=== PATIENT | male | born 1990 | race African-American/Black ===

== ENCOUNTER 2025-02-22 19:08 | Inpatient (IN) | payer MEDICARE, MEDICAID, SELFPAY ==
[2025-02-22 20:00] VITALS: BP 136/73; PULSE 60; RESP 16; TEMP 36.9; O2SAT 97
[2025-02-22] MEDS: Acetaminophen 325 MG TABLET 650 MG PO (21:04)
[2025-02-22] MEDS: hydrOXYzine HCL 25 MG TABLET PO (21:05)
[2025-02-22 22:28] VITALS: BMI 20.2
--- NOTE | 2025-02-23 04:49 | PC.ADMIT ---
At 1948, Ren perdomo is a 34 year old that was transferred from [facility] ED and admitted to [facility] on a CV for treatment of schizoaffective disorder ? depressive type. Pt presented to [facility] ED due to him reportedly being off his meds for 4 days and has been coming home late to his [employer] housing. No significant PMHX, except for, hx of poor med compliance and multiple previous IPLOC from years ago. Tox screen positive for THC and cocaine. Last use just prior to admission. Denies alcohol, tobacco, or other substance use.? On arrival, he was cooperative, pleasant, and quiet. Skin check is complete and unremarkable. He appears to be preoccupied, seen responding to internal stimuli, and smiling inappropriately during assessment. Thought process is somewhat disorganized, difficulty responding to questions in linear fashion. Reports he is eating and sleeping well. Pt denies all psych symptoms such as depression, anxiety, A/VH, and substance use, contradicting crisis evaluation. He states he?s only been taking Surrency and Risperdal. Surrency level was 0.05 on 02/22, (0.5-1 normal range). Provided limited participation reporting he was tired and hungry. Denies SI/HI. Reports feeling safe on the unit.? Guardianship paperwork and Botello order in chart for Risperdal, pt reports is allergic to. Pt placed on 15 minute safety checks
[2025-02-23 07:20] VITALS: BP 125/79; PULSE 52; RESP 14; TEMP 36.6; O2SAT 99
[2025-02-23 08:00] VITALS: BP 125/79; PULSE 52; RESP 18; TEMP 36.6; O2SAT 99
[2025-02-23 08:36] LABS: Estimated Average Glucose 103 mg/dL; Hemoglobin A1C 120.4918 umol/L; Hemoglobin A1c % 5.2 % (<6.0); Total Hemoglobin (HGBA1C) 3623.3411 umol/L
[2025-02-23 08:52] LABS: Alanine Aminotransferase 35 U/L (0-40); Albumin Level 4.8 g/dL (3.5-5.0); Alkaline Phosphatase 79 U/L (39-117); Anion Gap 12 (12-20); Aspartate Amino Transferase 28 U/L (5-37); Bilirubin Total 0.7 mg/dL (0.0-1.0); Blood Urea Nitrogen 13 mg/dL (9-16); Calcium 9.7 mg/dL (8.4-10.2); Carbon Dioxide 28 mmol/L (22-29); Chloride 105 mmol/L (96-108); Cholesterol 158 mg/dL (<200); Creatinine Clr Calc Pharmacy 104.2; Estimated Glomerular Filt Rate > 60; Glucose Random 112 mg/dL (60-115); HDL Cholesterol 76 mg/dL (>40); LDL Cholesterol Calculated 61 mg/dL (<100); Magnesium 2.1 mg/dL (1.6-2.6); Potassium 4.4 mmol/L (3.3-5.1); Sodium 141 mmol/L (135-145); Total Protein 7.5 g/dL (6.5-8.0); Triglycerides 109 mg/dL (<150)
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
[2025-02-23 09:11] LABS: Free T4 (Free Thyroxine) 1.21 ng/dL (0.71-1.85); Thyroid Stimulating Hormone 0.67 uIU/mL (0.32-4.0)
[2025-02-23 09:24] LABS: Folate 10.9 ng/mL (> or = 4.0); Vitamin B12 750 pg/mL (200-900)
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
[2025-02-23] MEDS: Lithium Carbonate 300 MG TABLET 150 MG PO (16:16)
[2025-02-23 19:30] VITALS: BP 147/73; PULSE 63; RESP 16; TEMP 36.7; O2SAT 100
[2025-02-23] MEDS: risperiDONE 0.5 MG TABLET PO (20:35)
[2025-02-23] MEDS: Acetaminophen 325 MG TABLET 650 MG PO (20:35)
[2025-02-23] MEDS: hydrOXYzine HCL 25 MG TABLET PO (20:35)
[2025-02-24 07:15] VITALS: BP 110/71; PULSE 81; RESP 16; TEMP 36.4; O2SAT 100
[2025-02-24] MEDS: Lithium Carbonate 300 MG TABLET 150 MG PO (08:38)
[2025-02-24] MEDS: Acetaminophen 325 MG TABLET 650 MG PO ×2 (08:39→21:02)
--- NOTE | 2025-02-24 15:32 | HO.PSYCHPN ---
Subjective Subjective Date of Service: 02/24/25 Reason For Visit: Schizophrenia Subjective Notes: Conditional Voluntary Interim History: Active on unit. social with peers. medication compliant. patient reports having some anxiety ;pt stated, I'm trying to draw to keep myself busy and not be anxious . encouraged to attend groups. denies SI/HI/VH/AH. Continue current tx plan. Medication Compliance: Yes Side effects from medications: No Attending Groups: No Mental Status Exam Mental Status Exam Narrative: Pt is alert and oriented; behavior is cooperative and calm; dressed in casual attire; mood is described as anxious ; eye contact appropriate; Speech is normal rate, volume and not pressured; thought process is organized; Thought content is on discharge; denies SI/HI/VH/AH. Diagnostics Vital Signs (24Hr): Vital Signs - 24 hr 02/23/25 19:30 02/24/25 07:15 Temperature 98.0 F 97.5 F Pulse Rate 63 81 Respiratory Rate 16 16 Blood Pressure 147/73 H 110/71 Pulse Oximetry 100 100 Oxygen Delivery Method Room Air Room Air BMI result Body Mass Index 20.2 Labs 02/23/25 08:03 Labs: Laboratory Results - last 48 hr 02/23/25 08:03 Sodium 141 Potassium 4.4 Chloride 105 Carbon Dioxide 28 Anion Gap 12 BUN 13 Creatinine 0.97 Estim Creat Clear Calc 104.2 Estimated GFR > 60 Random Glucose 112 Estimat Average Glucose 103 Hemoglobin A1c % 5.2 Calcium 9.7 Magnesium 2.1 Total Bilirubin 0.7 AST 28 ALT 35 Alkaline Phosphatase 79 Total Protein 7.5 Albumin 4.8 Triglycerides 109 Cholesterol 158 LDL Cholesterol, Calc 61 HDL Cholesterol 76 Vitamin B12 750 Folate 10.9 TSH 0.67 Free T4 1.21 Medications Medications Current Medications Acetaminophen (Acetaminophen 325 Mg Tablet) 650 mg PO Q6H PRN PRN Reason: Headache/Pain, Scale 1-10 Last Admin: 02/24/25 08:39 Dose: 650 mg Al Hydroxide/Mg Hydroxide (Magnesium Hydrox/Alum Hydrox 30 Ml Oral.Susp) 30 ml PO Q6H PRN PRN Reason: Heartburn/Nausea Hydroxyzine HCl (Hydroxyzine Hcl 25 Mg Tablet) 25 mg PO Q6H PRN PRN Reason: mild anxiety Last Admin: 02/23/25 20:35 Dose: 25 mg [place] Carbonate ([place] Carbonate 300 Mg Tablet) 150 mg PO DAILY MARIBEL Last Admin: 02/24/25 08:38 Dose: 150 mg Magnesium Hydroxide (Milk Of Magnesia 30 Ml Oral.Susp) 30 ml PO DAILY PRN PRN Reason: Constipation Nicotine Polacrilex (Nicotine Polacrilex 2 Mg Gum) 4 mg BUCCAL Q2H PRN PRN Reason: Nicotine Cravings Olanzapine (Olanzapine 5 Mg Tablet) 5 mg PO Q4H PRN PRN Reason: agitation Risperidone (Risperidone 0.5 Mg Tablet) 0.5 mg PO BEDTIME MARIBEL Last Admin: 02/23/25 20:35 Dose: 0.5 mg Trazodone HCl (Trazodone Hcl 50 Mg Tablet) 50 mg PO BEDTIME MRX1 PRN PRN Reason: Insomnia Allergies Allergies Allergy/AdvReac Type Severity Reaction Status Date / Time benztropine [From Cogentin] Allergy Anaphylaxis Verified 02/22/25 23:47 valproic acid Allergy Anaphylaxis Verified 02/22/25 23:47 Assessment & Plan Assessment & Plan (1) Schizophrenia: Status: Acute Code(s): F20.9 - Schizophrenia, unspecified (2) PTSD (post-traumatic stress disorder): Status: Acute Code(s): F43.10 - Post-traumatic stress disorder, unspecified (3) Cocaine use disorder: Status: Acute Code(s): F14.10 - Cocaine abuse, uncomplicated Plan Patient is a 34-year-old male with history of schizophrenia, PTSD, and cocaine use disorder who presented to ER due to medication noncompliance despite being on a Jose G's order. Plan: CV 15 minute safety checks Continue home medications obtain collateral encourage groups referral to outpatient therapy discharge planning 02/24: Active on unit. social with peers. medication compliant. patient reports having some anxiety ;pt stated, I'm trying to draw to keep myself busy and not be anxious . encouraged to attend groups. denies SI/HI/VH/AH. Continue current tx balaji Patient educated on: diagnosis, medication risk/benefits and therapeutic strategies Reason for continued inpatient stay Substantial Risk for: med/psych decompensation Time Spent With Patient Time: Total time managing care of this patient today _20___ minutes.
[2025-02-24 19:27] VITALS: BP 146/83; PULSE 81; RESP 16; TEMP 36.8; O2SAT 100
[2025-02-24] MEDS: risperiDONE 0.5 MG TABLET PO (21:02)
[2025-02-24] MEDS: hydrOXYzine HCL 25 MG TABLET PO (21:04)
[2025-02-25 07:44] VITALS: BP 93/61; PULSE 88; RESP 16; TEMP 36.3; O2SAT 100
[2025-02-25] MEDS: Lithium Carbonate 300 MG TABLET 150 MG PO (08:10)
--- NOTE | 2025-02-25 09:22 | HO.PSYCHPN ---
Subjective Subjective Date of Service: 02/25/25 Reason For Visit: Schizophrenia Subjective Notes: Conditional Voluntary Interim History: Pacing unit hallway. Patient reports he feels he is doing better today; pt stated, I'm doing self therapy and listening to music to keep myself calm . denies SI/HI/VH/AH. per nursing, slept 5 hours. Continue current tx plan. Medication Compliance: Yes Side effects from medications: No Attending Groups: No Mental Status Exam Mental Status Exam Narrative: Pt is alert and oriented; behavior is cooperative and calm; dressed in casual attire; mood is described as anxious ; eye contact appropriate; Speech is normal rate, volume and not pressured; thought process is organized; Thought content is on discharge; denies SI/HI/VH/AH. Diagnostics Vital Signs (24Hr): Vital Signs - 24 hr 02/24/25 19:27 02/25/25 07:44 Temperature 98.2 F 97.4 F Pulse Rate 81 88 Respiratory Rate 16 16 Blood Pressure 146/83 H 93/61 Pulse Oximetry 100 100 Oxygen Delivery Method Room Air Room Air BMI result Body Mass Index 20.2 Labs 02/23/25 08:03 Labs: Laboratory Results - last 48 hr 02/23/25 08:03 Vitamin B12 750 Folate 10.9 Medications Medications Current Medications Acetaminophen (Acetaminophen 325 Mg Tablet) 650 mg PO Q6H PRN PRN Reason: Headache/Pain, Scale 1-10 Last Admin: 02/24/25 21:02 Dose: 650 mg Al Hydroxide/Mg Hydroxide (Magnesium Hydrox/Alum Hydrox 30 Ml Oral.Susp) 30 ml PO Q6H PRN PRN Reason: Heartburn/Nausea Hydroxyzine HCl (Hydroxyzine Hcl 25 Mg Tablet) 25 mg PO Q6H PRN PRN Reason: mild anxiety Last Admin: 02/24/25 21:04 Dose: 25 mg [place] Carbonate ([place] Carbonate 300 Mg Tablet) 150 mg PO DAILY MARIBEL Last Admin: 02/25/25 08:10 Dose: 150 mg Magnesium Hydroxide (Milk Of Magnesia 30 Ml Oral.Susp) 30 ml PO DAILY PRN PRN Reason: Constipation Nicotine Polacrilex (Nicotine Polacrilex 2 Mg Gum) 4 mg BUCCAL Q2H PRN PRN Reason: Nicotine Cravings Olanzapine (Olanzapine 5 Mg Tablet) 5 mg PO Q4H PRN PRN Reason: agitation Risperidone (Risperidone 0.5 Mg Tablet) 0.5 mg PO BEDTIME MARIBEL Last Admin: 02/24/25 21:02 Dose: 0.5 mg Trazodone HCl (Trazodone Hcl 50 Mg Tablet) 50 mg PO BEDTIME MRX1 PRN PRN Reason: Insomnia Allergies Allergies Allergy/AdvReac Type Severity Reaction Status Date / Time benztropine [From Cogentin] Allergy Anaphylaxis Verified 02/22/25 23:47 valproic acid Allergy Anaphylaxis Verified 02/22/25 23:47 Assessment & Plan Assessment & Plan (1) Schizophrenia: Status: Acute Code(s): F20.9 - Schizophrenia, unspecified (2) PTSD (post-traumatic stress disorder): Status: Acute Code(s): F43.10 - Post-traumatic stress disorder, unspecified (3) Cocaine use disorder: Status: Acute Code(s): F14.10 - Cocaine abuse, uncomplicated Plan Patient is a 34-year-old male with history of schizophrenia, PTSD, and cocaine use disorder who presented to ER due to medication noncompliance despite being on a Jose G's order. Plan: CV 15 minute safety checks Continue home medications obtain collateral encourage groups referral to outpatient therapy discharge planning 02/24: Active on unit. social with peers. medication compliant. patient reports having some anxiety ;pt stated, I'm trying to draw to keep myself busy and not be anxious . encouraged to attend groups. denies SI/HI/VH/AH. Continue current tx plan 02/25: Pacing unit hallway. Patient reports he feels he is doing better today; pt stated, I'm doing self therapy and listening to music to keep myself calm . denies SI/HI/VH/AH. per nursing, slept 5 hours. Continue current tx plan. Patient educated on: diagnosis, medication risk/benefits and therapeutic strategies Reason for continued inpatient stay Substantial Risk for: med/psych decompensation Time Spent With Patient Time: Total time managing care of this patient today _20___ minutes.
[2025-02-25] MEDS: Magnesium Hydrox/Alum Hydrox 30 ML ORAL.SUSP PO ×2 (12:41→18:50)
[2025-02-25] MEDS: Acetaminophen 325 MG TABLET 650 MG PO ×2 (13:03→19:09)
[2025-02-25] MEDS: hydrOXYzine HCL 25 MG TABLET PO ×2 (13:05→19:09)
[2025-02-25] MEDS: Milk of Magnesia 30 ML ORAL.SUSP PO (18:09)
[2025-02-25] MEDS: OLANZapine 5 MG TABLET PO (19:20)
[2025-02-25 19:32] VITALS: BP 132/75; PULSE 97; RESP 16; TEMP 36.9; O2SAT 98
[2025-02-25] MEDS: risperiDONE 0.5 MG TABLET PO (21:04)
[2025-02-26 07:59] VITALS: BP 122/73; PULSE 72; RESP 16; TEMP 36.4; O2SAT 100
[2025-02-26] MEDS: Lithium Carbonate 300 MG TABLET 150 MG PO (08:10)
[2025-02-26] MEDS: Acetaminophen 325 MG TABLET 650 MG PO ×2 (08:41→16:01)
[2025-02-26] MEDS: OLANZapine 5 MG TABLET PO ×2 (08:42→13:20)
[2025-02-26] MEDS: hydrOXYzine HCL 25 MG TABLET PO ×2 (08:42→16:00)
--- NOTE | 2025-02-26 08:50 | HO.PSYCHPN ---
Subjective Subjective Date of Service: 02/26/25 Reason For Visit: Schizophrenia Subjective Notes: Conditional Voluntary Interim History: Patient reports feeling good ; he reports poor sleep last nigh d/t nightmares. Discussed starting prazosin. Pt reports he would like to think about it . He reports feeling constantly hungry from medications. denies SI/HI/VH/AH. Continue current tx plan. Medication Compliance: Yes Side effects from medications: No Attending Groups: Yes Mental Status Exam Mental Status Exam Narrative: Pt is alert and oriented; behavior is cooperative and calm; dressed in casual attire; mood is described as okay ; eye contact appropriate; Speech is normal rate, volume and not pressured; thought process is organized; Thought content is on discharge; denies SI/HI/VH/AH. Diagnostics Vital Signs (24Hr): Vital Signs - 24 hr 02/25/25 19:32 02/26/25 07:59 Temperature 98.5 F 97.6 F Pulse Rate 97 72 Respiratory Rate 16 16 Blood Pressure 132/75 122/73 Pulse Oximetry 98 100 Oxygen Delivery Method Room Air Room Air BMI result Body Mass Index 20.2 Labs 02/23/25 08:03 Medications Medications Current Medications Acetaminophen (Acetaminophen 325 Mg Tablet) 650 mg PO Q6H PRN PRN Reason: Headache/Pain, Scale 1-10 Last Admin: 02/26/25 08:41 Dose: 650 mg Al Hydroxide/Mg Hydroxide (Magnesium Hydrox/Alum Hydrox 30 Ml Oral.Susp) 30 ml PO Q6H PRN PRN Reason: Heartburn/Nausea Last Admin: 02/25/25 18:50 Dose: 30 ml Hydroxyzine HCl (Hydroxyzine Hcl 25 Mg Tablet) 25 mg PO Q6H PRN PRN Reason: mild anxiety Last Admin: 02/26/25 08:42 Dose: 25 mg [place] Carbonate ([place] Carbonate 300 Mg Tablet) 150 mg PO DAILY MARIBEL Last Admin: 02/26/25 08:10 Dose: 150 mg Magnesium Hydroxide (Milk Of Magnesia 30 Ml Oral.Susp) 30 ml PO DAILY PRN PRN Reason: Constipation Last Admin: 02/25/25 18:09 Dose: 30 ml Nicotine Polacrilex (Nicotine Polacrilex 2 Mg Gum) 4 mg BUCCAL Q2H PRN PRN Reason: Nicotine Cravings Olanzapine (Olanzapine 5 Mg Tablet) 5 mg PO Q4H PRN PRN Reason: agitation Last Admin: 02/26/25 08:42 Dose: 5 mg Risperidone (Risperidone 0.5 Mg Tablet) 0.5 mg PO BEDTIME MARIBEL Last Admin: 02/25/25 21:04 Dose: 0.5 mg Trazodone HCl (Trazodone Hcl 50 Mg Tablet) 50 mg PO BEDTIME MRX1 PRN PRN Reason: Insomnia Allergies Allergies Allergy/AdvReac Type Severity Reaction Status Date / Time benztropine [From Cogentin] Allergy Anaphylaxis Verified 02/22/25 23:47 valproic acid Allergy Anaphylaxis Verified 02/22/25 23:47 Assessment & Plan Assessment & Plan (1) Schizophrenia: Status: Acute Code(s): F20.9 - Schizophrenia, unspecified (2) PTSD (post-traumatic stress disorder): Status: Acute Code(s): F43.10 - Post-traumatic stress disorder, unspecified (3) Cocaine use disorder: Status: Acute Code(s): F14.10 - Cocaine abuse, uncomplicated Plan Patient is a 34-year-old male with history of schizophrenia, PTSD, and cocaine use disorder who presented to ER due to medication noncompliance despite being on a Jose G's order. Plan: CV 15 minute safety checks Continue home medications obtain collateral encourage groups referral to outpatient therapy discharge planning 02/24: Active on unit. social with peers. medication compliant. patient reports having some anxiety ;pt stated, I'm trying to draw to keep myself busy and not be anxious . encouraged to attend groups. denies SI/HI/VH/AH. Continue current tx plan 02/25: Pacing unit hallway. Patient reports he feels he is doing better today; pt stated, I'm doing self therapy and listening to music to keep myself calm . denies SI/HI/VH/AH. per nursing, slept 5 hours. Continue current tx plan. 02/26: Patient reports feeling good ; he reports poor sleep last nigh d/t nightmares. Discussed starting prazosin. Pt reports he would like to think about it . He reports feeling constantly hungry from medications. denies SI/HI/VH/AH. Continue current tx plan. Patient educated on: diagnosis, medication risk/benefits and therapeutic strategies Reason for continued inpatient stay Substantial Risk for: med/psych decompensation Time Spent With Patient Time: Total time managing care of this patient today _20___ minutes.
[2025-02-26] MEDS: Magnesium Hydrox/Alum Hydrox 30 ML ORAL.SUSP PO (10:46)
[2025-02-26] MEDS: Milk of Magnesia 30 ML ORAL.SUSP PO (10:46)
[2025-02-26 20:00] VITALS: RESP 16
[2025-02-26] MEDS: risperiDONE 0.5 MG TABLET PO (21:06)
[2025-02-27 08:00] VITALS: BP 121/69; PULSE 69; TEMP 36.3; O2SAT 100
[2025-02-27] MEDS: Lithium Carbonate 300 MG TABLET 150 MG PO (08:09)
[2025-02-27] MEDS: Acetaminophen 325 MG TABLET 650 MG PO ×3 (08:16→20:31)
[2025-02-27] MEDS: hydrOXYzine HCL 25 MG TABLET PO ×2 (08:16→15:33)
[2025-02-27] MEDS: OLANZapine 5 MG TABLET PO ×2 (09:44→15:21)
[2025-02-27] MEDS: Magnesium Hydrox/Alum Hydrox 30 ML ORAL.SUSP PO (12:46)
[2025-02-27] MEDS: Milk of Magnesia 30 ML ORAL.SUSP PO (12:46)
--- NOTE | 2025-02-27 13:53 | P.PNPSI_ITS ---
Subjective Subjective Date of Service: 02/27/25 Reason For Visit: Schizophrenia Subjective Notes: Conditional Voluntary Interim History: Active on unit. Bizarre today. asking multiple people their zodiac sign and age. Pt stated, I'm trying to keep myself calm because I feel agitated. The Olanzapine is helping . When asked what is making him agitated, pt is vague and unable to give reasoning. denies SI/HI/VH/AH. Risperidal increased to 1mg PO daily per [facility] Order. PRN Haldol IM ordered if pt declines Risperidal. Medication Compliance: Yes Side effects from medications: No Attending Groups: Intermittent Mental Status Exam Mental Status Exam Narrative: Pt is alert and oriented; behavior is cooperative and calm; dressed in casual attire; mood is described as okay ; eye contact appropriate; Speech is normal rate, volume and not pressured; thought process is organized; vague, bizarre. appears paranoid; denies SI/HI/VH/AH. Diagnostics Vital Signs (24Hr): Vital Signs - 24 hr 02/26/25 20:00 02/27/25 08:00 Temperature 97.3 F Pulse Rate 69 Respiratory Rate 16 Blood Pressure 121/69 Pulse Oximetry 100 Oxygen Delivery Method Room Air BMI result Body Mass Index 20.2 Labs 02/23/25 08:03 Medications Medications Current Medications Acetaminophen (Acetaminophen 325 Mg Tablet) 650 mg PO Q6H PRN PRN Reason: Headache/Pain, Scale 1-10 Last Admin: 02/27/25 08:16 Dose: 650 mg Al Hydroxide/Mg Hydroxide (Magnesium Hydrox/Alum Hydrox 30 Ml Oral.Susp) 30 ml PO Q6H PRN PRN Reason: Heartburn/Nausea Last Admin: 02/27/25 12:46 Dose: 30 ml Hydroxyzine HCl (Hydroxyzine Hcl 25 Mg Tablet) 25 mg PO Q6H PRN PRN Reason: mild anxiety Last Admin: 02/27/25 08:16 Dose: 25 mg [place] Carbonate ([place] Carbonate 300 Mg Tablet) 150 mg PO DAILY MARIBEL Last Admin: 02/27/25 08:09 Dose: 150 mg Magnesium Hydroxide (Milk Of Magnesia 30 Ml Oral.Susp) 30 ml PO DAILY PRN PRN Reason: Constipation Last Admin: 02/27/25 12:46 Dose: 30 ml Nicotine Polacrilex (Nicotine Polacrilex 2 Mg Gum) 4 mg BUCCAL Q2H PRN PRN Reason: Nicotine Cravings Olanzapine (Olanzapine 5 Mg Tablet) 5 mg PO Q4H PRN PRN Reason: agitation Last Admin: 02/27/25 09:44 Dose: 5 mg Risperidone (Risperidone 0.5 Mg Tablet) 0.5 mg PO BEDTIME MARIBEL Last Admin: 02/26/25 21:06 Dose: 0.5 mg Trazodone HCl (Trazodone Hcl 50 Mg Tablet) 50 mg PO BEDTIME MRX1 PRN PRN Reason: Insomnia Allergies Allergies Allergy/AdvReac Type Severity Reaction Status Date / Time benztropine [From Cogentin] Allergy Anaphylaxis Verified 02/22/25 23:47 valproic acid Allergy Anaphylaxis Verified 02/22/25 23:47 Assessment & Plan Assessment & Plan (1) Schizophrenia: Status: Acute Code(s): F20.9 - Schizophrenia, unspecified (2) PTSD (post-traumatic stress disorder): Status: Acute Code(s): F43.10 - Post-traumatic stress disorder, unspecified (3) Cocaine use disorder: Status: Acute Code(s): F14.10 - Cocaine abuse, uncomplicated Plan Patient is a 34-year-old male with history of schizophrenia, PTSD, and cocaine use disorder who presented to ER due to medication noncompliance despite being on a Jose G's order. Plan: CV 15 minute safety checks Continue home medications obtain collateral encourage groups referral to outpatient therapy discharge planning 02/24: Active on unit. social with peers. medication compliant. patient reports having some anxiety ;pt stated, I'm trying to draw to keep myself busy and not be anxious . encouraged to attend groups. denies SI/HI/VH/AH. Continue current tx plan 02/25: Pacing unit hallway. Patient reports he feels he is doing better today; pt stated, I'm doing self therapy and listening to music to keep myself calm . denies SI/HI/VH/AH. per nursing, slept 5 hours. Continue current tx plan. 02/26: Patient reports feeling good ; he reports poor sleep last nigh d/t nightmares. Discussed starting prazosin. Pt reports he would like to think about it . He reports feeling constantly hungry from medications. denies SI/HI/VH/AH. Continue current tx plan. 02/27: Active on unit. Bizarre today. asking multiple people their zodiac sign and age. Pt stated, I'm trying to keep myself calm because I feel agitated. The Olanzapine is helping . When asked what is making him agitated, pt is vague and unable to give reasoning. denies SI/HI/VH/AH. Risperidal increased to 1mg PO daily per [place] Order. PRN Haldol IM ordered if pt declines Risperidal. Patient educated on: diagnosis and medication risk/benefits Reason for continued inpatient stay Substantial Risk for: med/psych decompensation Time Spent With Patient Time: Total time managing care of this patient today _20___ minutes.
[2025-02-27 20:00] VITALS: BP 152/88; PULSE 89; RESP 16; TEMP 37; O2SAT 100
[2025-02-27] MEDS: risperiDONE 1 MG TABLET PO (20:29)
[2025-02-27] MEDS: Nicotine Polacrilex 2 MG GUM 4 MG BUCCAL (20:34)
[2025-02-28 07:30] VITALS: BP 105/70; PULSE 82; RESP 16; TEMP 36.6; O2SAT 99
[2025-02-28] MEDS: Lithium Carbonate 300 MG TABLET 150 MG PO (08:18)
[2025-02-28] MEDS: OLANZapine 5 MG TABLET PO ×3 (08:20→20:02)
[2025-02-28] MEDS: hydrOXYzine HCL 25 MG TABLET PO ×3 (08:20→20:48)
[2025-02-28] MEDS: Acetaminophen 325 MG TABLET 650 MG PO ×3 (08:20→20:48)
[2025-02-28] MEDS: Magnesium Hydrox/Alum Hydrox 30 ML ORAL.SUSP PO (10:59)
[2025-02-28] MEDS: Milk of Magnesia 30 ML ORAL.SUSP PO (12:12)
[2025-02-28] MEDS: Nicotine Polacrilex 2 MG GUM 4 MG BUCCAL (14:30)
--- NOTE | 2025-02-28 16:10 | P.PNPSI_ITS ---
Subjective Subjective Date of Service: 02/28/25 Reason For Visit: Schizophrenia Interim History: feels meds are great. feeling better mood-brown. doesn't feel angry. mood is level. noted pt's current doses of meds are quite low and he can expect them to be increased to be more therapeutic. per staff, meds are helpful. denies Sx aside from anxiety. laughing to himself at times. using zyprexa and hydroxyzine PRNs. sleeping well. Mental Status Exam Mental Status Exam Narrative: Pt is alert and oriented; behavior is cooperative and calm; dressed in casual attire; mood is described as feeling better; eye contact appropriate; Speech is normal rate, volume and not pressured; thought process is organized; vague, bizarre. appears paranoid; no SI/HI/VH/AH expressed. Diagnostics Vital Signs (24Hr): Vital Signs - 24 hr 02/27/25 20:00 02/28/25 07:30 Temperature 98.6 F 97.8 F Pulse Rate 89 82 Respiratory Rate 16 16 Blood Pressure 152/88 H 105/70 Pulse Oximetry 100 99 Oxygen Delivery Method Room Air Room Air BMI result Body Mass Index 20.2 Labs 02/23/25 08:03 Medications Medications Current Medications Acetaminophen (Acetaminophen 325 Mg Tablet) 650 mg PO Q6H PRN PRN Reason: Headache/Pain, Scale 1-10 Last Admin: 02/28/25 14:30 Dose: 650 mg Al Hydroxide/Mg Hydroxide (Magnesium Hydrox/Alum Hydrox 30 Ml Oral.Susp) 30 ml PO Q6H PRN PRN Reason: Heartburn/Nausea Last Admin: 02/28/25 10:59 Dose: 30 ml Haloperidol Lactate (Haloperidol Lactate 5 Mg/Ml Vial) 5 mg IM DAILY PRN PRN Reason: Psychosis Hydroxyzine HCl (Hydroxyzine Hcl 25 Mg Tablet) 25 mg PO Q6H PRN PRN Reason: mild anxiety Last Admin: 02/28/25 14:30 Dose: 25 mg [place] Carbonate ([place] Carbonate 300 Mg Tablet) 150 mg PO DAILY MARIBEL Last Admin: 02/28/25 08:18 Dose: 150 mg Magnesium Hydroxide (Milk Of Magnesia 30 Ml Oral.Susp) 30 ml PO DAILY PRN PRN Reason: Constipation Last Admin: 02/28/25 12:12 Dose: 30 ml Nicotine Polacrilex (Nicotine Polacrilex 2 Mg Gum) 4 mg BUCCAL Q2H PRN PRN Reason: Nicotine Cravings Last Admin: 02/28/25 14:30 Dose: 4 mg Olanzapine (Olanzapine 5 Mg Tablet) 5 mg PO Q4H PRN PRN Reason: agitation Last Admin: 02/28/25 12:12 Dose: 5 mg Risperidone (Risperidone 1 Mg Tablet) 1 mg PO BEDTIME MARIBEL Last Admin: 02/27/25 20:29 Dose: 1 mg Trazodone HCl (Trazodone Hcl 50 Mg Tablet) 50 mg PO BEDTIME MRX1 PRN PRN Reason: Insomnia Allergies Allergies Allergy/AdvReac Type Severity Reaction Status Date / Time benztropine [From Cogentin] Allergy Anaphylaxis Verified 02/22/25 23:47 valproic acid Allergy Anaphylaxis Verified 02/22/25 23:47 Assessment & Plan Assessment & Plan (1) Schizophrenia: Status: Acute Code(s): F20.9 - Schizophrenia, unspecified (2) PTSD (post-traumatic stress disorder): Status: Acute Code(s): F43.10 - Post-traumatic stress disorder, unspecified (3) Cocaine use disorder: Status: Acute Code(s): F14.10 - Cocaine abuse, uncomplicated Plan Patient is a 34-year-old male with history of schizophrenia, PTSD, and cocaine use disorder who presented to ER due to medication noncompliance despite being on a Jose G's order. Plan: CV 15 minute safety checks Continue home medications obtain collateral encourage groups referral to outpatient therapy discharge planning 02/24: Active on unit. social with peers. medication compliant. patient reports having some anxiety ;pt stated, I'm trying to draw to keep myself busy and not be anxious . encouraged to attend groups. denies SI/HI/VH/AH. Continue current tx plan 02/25: Pacing unit hallway. Patient reports he feels he is doing better today; pt stated, I'm doing self therapy and listening to music to keep myself calm . denies SI/HI/VH/AH. per nursing, slept 5 hours. Continue current tx plan. 02/26: Patient reports feeling good ; he reports poor sleep last nigh d/t nightmares. Discussed starting prazosin. Pt reports he would like to think about it . He reports feeling constantly hungry from medications. denies SI/HI/VH/AH. Continue current tx plan. 02/27: Active on unit. Bizarre today. asking multiple people their zodiac sign and age. Pt stated, I'm trying to keep myself calm because I feel agitated. The Olanzapine is helping . When asked what is making him agitated, pt is vague and unable to give reasoning. denies SI/HI/VH/AH. Risperidal increased to 1mg PO daily per [place] Order. PRN Haldol IM ordered if pt declines Risperidal. 02/28: feeling quite well on meds but still appears very symptomatic. informed he is on very low doses of medication and that he can expect them to be increased. Reason for continued inpatient stay Substantial Risk for: inability to function Time Spent With Patient Time: Total time managing care of this patient today _25___ minutes.
[2025-02-28 19:30] VITALS: BP 144/87; PULSE 83; RESP 16; TEMP 36.4; O2SAT 100
[2025-02-28] MEDS: risperiDONE 1 MG TABLET PO (20:02)
[2025-03-01 07:00] VITALS: BMI 20.8
[2025-03-01 07:59] VITALS: BP 146/80; PULSE 75; RESP 18; TEMP 36.5; O2SAT 97
[2025-03-01] MEDS: Lithium Carbonate 300 MG TABLET 150 MG PO (08:19)
[2025-03-01] MEDS: hydrOXYzine HCL 25 MG TABLET PO ×2 (09:33→15:40)
[2025-03-01] MEDS: Acetaminophen 325 MG TABLET 650 MG PO ×2 (09:33→15:40)
[2025-03-01] MEDS: Magnesium Hydrox/Alum Hydrox 30 ML ORAL.SUSP PO (11:44)
[2025-03-01] MEDS: OLANZapine 5 MG TABLET PO (11:44)
--- NOTE | 2025-03-01 13:09 | P.PNPSI_ITS ---
Subjective Subjective Date of Service: 03/01/25 Reason For Visit: Schizophrenia Subjective Notes: Conditional Voluntary Interim History: Patient reports feeling agitated but states its from nothing in particular . Pt stated, I feel the zyprexa makes me more agitated than calm me down ; discussed medications. Pt agreed to increase in Risperidal to 2mg and having PRN Seroquel. Pt reports nightmares the past few nights; discussed starting Prazosin, pt agreed to trial. Start: Prazosin 1mg PO bedtime. denies SI/HI/VH/AH. Medication Compliance: Yes Side effects from medications: No Attending Groups: Intermittent Mental Status Exam Mental Status Exam Narrative: Pt is alert and oriented; behavior is cooperative and calm; dressed in casual attire; mood is described as agitated; eye contact appropriate; Speech is normal rate, volume and not pressured; thought process is organized; vague, bizarre. ; denies SI/HI/VH/AH. Diagnostics Vital Signs (24Hr): Vital Signs - 24 hr 02/28/25 19:30 03/01/25 07:59 Temperature 97.6 F 97.7 F Pulse Rate 83 75 Respiratory Rate 16 18 Blood Pressure 144/87 H 146/80 H Pulse Oximetry 100 97 Oxygen Delivery Method Room Air Room Air BMI result Body Mass Index 20.2 Labs 02/23/25 08:03 Medications Medications Current Medications Acetaminophen (Acetaminophen 325 Mg Tablet) 650 mg PO Q6H PRN PRN Reason: Headache/Pain, Scale 1-10 Last Admin: 03/01/25 09:33 Dose: 650 mg Al Hydroxide/Mg Hydroxide (Magnesium Hydrox/Alum Hydrox 30 Ml Oral.Susp) 30 ml PO Q6H PRN PRN Reason: Heartburn/Nausea Last Admin: 03/01/25 11:44 Dose: 30 ml Diphenhydramine HCl (Diphenhydramine Hcl 25 Mg Capsule) 50 mg PO Q8H PRN PRN Reason: Allergic Symptoms Haloperidol Lactate (Haloperidol Lactate 5 Mg/Ml Vial) 5 mg IM DAILY PRN PRN Reason: Psychosis Hydroxyzine HCl (Hydroxyzine Hcl 25 Mg Tablet) 25 mg PO Q6H PRN PRN Reason: mild anxiety Last Admin: 03/01/25 09:33 Dose: 25 mg [place] Carbonate ([place] Carbonate 300 Mg Tablet) 150 mg PO DAILY MARIBEL Last Admin: 03/01/25 08:19 Dose: 150 mg Magnesium Hydroxide (Milk Of Magnesia 30 Ml Oral.Susp) 30 ml PO DAILY PRN PRN Reason: Constipation Last Admin: 02/28/25 12:12 Dose: 30 ml Nicotine Polacrilex (Nicotine Polacrilex 2 Mg Gum) 4 mg BUCCAL Q2H PRN PRN Reason: Nicotine Cravings Last Admin: 02/28/25 14:30 Dose: 4 mg Prazosin HCl (Prazosin Hcl 1 Mg Capsule) 1 mg PO BEDTIME MARIBEL; Protocol Quetiapine Fumarate (Quetiapine Fumarate 25 Mg Tablet) 25 mg PO TID PRN PRN Reason: agitation Risperidone (Risperidone 2 Mg Tablet) 2 mg PO BEDTIME MARIBEL Trazodone HCl (Trazodone Hcl 50 Mg Tablet) 50 mg PO BEDTIME MRX1 PRN PRN Reason: Insomnia Allergies Allergies Allergy/AdvReac Type Severity Reaction Status Date / Time benztropine [From Cogentin] Allergy Anaphylaxis Verified 02/22/25 23:47 valproic acid Allergy Anaphylaxis Verified 02/22/25 23:47 Assessment & Plan Assessment & Plan (1) Schizophrenia: Status: Acute Code(s): F20.9 - Schizophrenia, unspecified (2) PTSD (post-traumatic stress disorder): Status: Acute Code(s): F43.10 - Post-traumatic stress disorder, unspecified (3) Cocaine use disorder: Status: Acute Code(s): F14.10 - Cocaine abuse, uncomplicated Plan Patient is a 34-year-old male with history of schizophrenia, PTSD, and cocaine use disorder who presented to ER due to medication noncompliance despite being on a [facility] G[facility] order. Plan: CV 15 minute safety checks Continue home medications obtain collateral encourage groups referral to outpatient therapy discharge planning 02/24: Active on unit. social with peers. medication compliant. patient reports having some anxiety ;pt stated, I'm trying to draw to keep myself busy and not be anxious . encouraged to attend groups. denies SI/HI/VH/AH. Continue current tx plan 02/25: Pacing unit hallway. Patient reports he feels he is doing better today; pt stated, I'm doing self therapy and listening to music to keep myself calm . denies SI/HI/VH/AH. per nursing, slept 5 hours. Continue current tx plan. 02/26: Patient reports feeling good ; he reports poor sleep last nigh d/t nightmares. Discussed starting prazosin. Pt reports he would like to think about it . He reports feeling constantly hungry from medications. denies SI/HI/VH/AH. Continue current tx plan. 02/27: Active on unit. Bizarre today. asking multiple people their zodiac sign and age. Pt stated, I'm trying to keep myself calm because I feel agitated. The Olanzapine is helping . When asked what is making him agitated, pt is vague and unable to give reasoning. denies SI/HI/VH/AH. Risperidal increased to 1mg PO daily per [place] Order. PRN Haldol IM ordered if pt declines Risperidal. 02/28: feeling quite well on meds but still appears very symptomatic. informed he is on very low doses of medication and that he can expect them to be increased. 03/01: Patient reports feeling agitated but states its from nothing in particular . Pt stated, I feel the zyprexa makes me more agitated than calm me down ; discussed medications. Pt agreed to increase in Risperidal to 2mg and having PRN Seroquel. Pt reports nightmares the past few nights; discussed starting Prazosin, pt agreed to trial. Start: Prazosin 1mg PO bedtime. denies SI/HI/VH/AH. Patient educated on: diagnosis, medication risk/benefits and therapeutic strategies Reason for continued inpatient stay Substantial Risk for: med/psych decompensation Time Spent With Patient Time: Total time managing care of this patient today _20___ minutes.
[2025-03-01] MEDS: diphenhydrAMINE HCL 25 MG CAPSULE 50 MG PO (13:30)
[2025-03-01] MEDS: QUEtiapine Fumarate 25 MG TABLET PO ×2 (13:30→17:42)
[2025-03-01] MEDS: Milk of Magnesia 30 ML ORAL.SUSP PO (13:38)
[2025-03-01 20:00] VITALS: BP 129/67; PULSE 65; RESP 16; TEMP 36.6; O2SAT 99
[2025-03-01 21:12] VITALS: BP 133/84
[2025-03-01] MEDS: Prazosin HCL 1 MG CAPSULE PO (21:12)
[2025-03-01] MEDS: risperiDONE 2 MG TABLET PO (21:12)
[2025-03-02 07:53] VITALS: BP 126/71; PULSE 105; RESP 16; TEMP 36.4; O2SAT 100
[2025-03-02] MEDS: Lithium Carbonate 300 MG TABLET 150 MG PO (08:06)
[2025-03-02] MEDS: hydrOXYzine HCL 25 MG TABLET PO ×2 (08:46→15:53)
[2025-03-02] MEDS: QUEtiapine Fumarate 25 MG TABLET PO ×3 (08:46→17:41)
[2025-03-02] MEDS: Acetaminophen 325 MG TABLET 650 MG PO ×2 (08:47→15:53)
--- NOTE | 2025-03-02 09:39 | HO.PSYCHPN ---
Subjective Subjective Date of Service: 03/02/25 Reason For Visit: Schizophrenia Subjective Notes: 3 Day Interim History: Signed 3 day notice. 3 day up on 02/04/25. Patient reports feeling better with Seroquel. Pt stated, the Seroquel is helping me the most so far. It eases my frustration and relax's me . denies any side effects. Patient reports he would like to go back home because he feels improved. denies SI/HI/VH/AH. continue current tx plan. Medication Compliance: Yes Side effects from medications: No Attending Groups: No Mental Status Exam Mental Status Exam Narrative: Pt is alert and oriented; behavior is cooperative and calm; dressed in casual attire; mood is described as good; eye contact appropriate; Speech is normal rate, volume and not pressured; thought process is organized; focused on discharge; denies SI/HI/VH/AH. Diagnostics Vital Signs (24Hr): Vital Signs - 24 hr 03/01/25 20:00 03/01/25 21:12 03/02/25 07:53 Temperature 97.9 F 97.5 F Pulse Rate 65 105 H Respiratory Rate 16 16 Blood Pressure 129/67 133/84 126/71 Pulse Oximetry 99 100 Oxygen Delivery Method Room Air Room Air BMI result Body Mass Index 20.8 Labs 02/23/25 08:03 Medications Medications Current Medications Acetaminophen (Acetaminophen 325 Mg Tablet) 650 mg PO Q6H PRN PRN Reason: Headache/Pain, Scale 1-10 Last Admin: 03/02/25 08:47 Dose: 650 mg Al Hydroxide/Mg Hydroxide (Magnesium Hydrox/Alum Hydrox 30 Ml Oral.Susp) 30 ml PO Q6H PRN PRN Reason: Heartburn/Nausea Last Admin: 03/01/25 11:44 Dose: 30 ml Diphenhydramine HCl (Diphenhydramine Hcl 25 Mg Capsule) 50 mg PO Q8H PRN PRN Reason: Allergic Symptoms Last Admin: 03/01/25 13:30 Dose: 25 mg Haloperidol Lactate (Haloperidol Lactate 5 Mg/Ml Vial) 5 mg IM DAILY PRN PRN Reason: Psychosis Hydroxyzine HCl (Hydroxyzine Hcl 25 Mg Tablet) 25 mg PO Q6H PRN PRN Reason: mild anxiety Last Admin: 03/02/25 08:46 Dose: 25 mg [place] Carbonate ([place] Carbonate 300 Mg Tablet) 150 mg PO DAILY MARIBEL Last Admin: 03/02/25 08:06 Dose: 150 mg Magnesium Hydroxide (Milk Of Magnesia 30 Ml Oral.Susp) 30 ml PO DAILY PRN PRN Reason: Constipation Last Admin: 03/01/25 13:38 Dose: 30 ml Nicotine Polacrilex (Nicotine Polacrilex 2 Mg Gum) 4 mg BUCCAL Q2H PRN PRN Reason: Nicotine Cravings Last Admin: 02/28/25 14:30 Dose: 4 mg Prazosin HCl (Prazosin Hcl 1 Mg Capsule) 1 mg PO BEDTIME MARIBLE; Protocol Last Admin: 03/01/25 21:12 Dose: 1 mg Quetiapine Fumarate (Quetiapine Fumarate 25 Mg Tablet) 25 mg PO TID PRN PRN Reason: agitation Last Admin: 03/02/25 08:46 Dose: 25 mg Risperidone (Risperidone 2 Mg Tablet) 2 mg PO BEDTIME MARIBEL Last Admin: 03/01/25 21:12 Dose: 2 mg Trazodone HCl (Trazodone Hcl 50 Mg Tablet) 50 mg PO BEDTIME MRX1 PRN PRN Reason: Insomnia Allergies Allergies Allergy/AdvReac Type Severity Reaction Status Date / Time benztropine [From Cogentin] Allergy Anaphylaxis Verified 02/22/25 23:47 valproic acid Allergy Anaphylaxis Verified 02/22/25 23:47 Assessment & Plan Assessment & Plan (1) Schizophrenia: Status: Acute Code(s): F20.9 - Schizophrenia, unspecified (2) PTSD (post-traumatic stress disorder): Status: Acute Code(s): F43.10 - Post-traumatic stress disorder, unspecified (3) Cocaine use disorder: Status: Acute Code(s): F14.10 - Cocaine abuse, uncomplicated Plan Patient is a 34-year-old male with history of schizophrenia, PTSD, and cocaine use disorder who presented to ER due to medication noncompliance despite being on a Jose G's order. Plan: CV 15 minute safety checks Continue home medications obtain collateral encourage groups referral to outpatient therapy discharge planning 02/24: Active on unit. social with peers. medication compliant. patient reports having some anxiety ;pt stated, I'm trying to draw to keep myself busy and not be anxious . encouraged to attend groups. denies SI/HI/VH/AH. Continue current tx plan 02/25: Pacing unit hallway. Patient reports he feels he is doing better today; pt stated, I'm doing self therapy and listening to music to keep myself calm . denies SI/HI/VH/AH. per nursing, slept 5 hours. Continue current tx plan. 02/26: Patient reports feeling good ; he reports poor sleep last nigh d/t nightmares. Discussed starting prazosin. Pt reports he would like to think about it . He reports feeling constantly hungry from medications. denies SI/HI/VH/AH. Continue current tx plan. 02/27: Active on unit. Bizarre today. asking multiple people their zodiac sign and age. Pt stated, I'm trying to keep myself calm because I feel agitated. The Olanzapine is helping . When asked what is making him agitated, pt is vague and unable to give reasoning. denies SI/HI/VH/AH. Risperidal increased to 1mg PO daily per [facility] Order. PRN Haldol IM ordered if pt declines Risperidal. 02/28: feeling quite well on meds but still appears very symptomatic. informed he is on very low doses of medication and that he can expect them to be increased. 03/01: Patient reports feeling agitated but states its from nothing in particular . Pt stated, I feel the zyprexa makes me more agitated than calm me down ; discussed medications. Pt agreed to increase in Risperidal to 2mg and having PRN Seroquel. Pt reports nightmares the past few nights; discussed starting Prazosin, pt agreed to trial. Start: Prazosin 1mg PO bedtime. denies SI/HI/VH/AH. 03/02: Signed 3 day notice. 3 day up on 02/04/25. Patient reports feeling better with Seroquel. Pt stated, the Seroquel is helping me the most so far. It eases my frustration and relax's me . denies any side effects. Patient reports he would like to go back home because he feels improved. denies SI/HI/VH/AH. continue current tx plan. Patient educated on: diagnosis and medication risk/benefits Reason for continued inpatient stay Substantial Risk for: med/psych decompensation Time Spent With Patient Time: Total time managing care of this patient today _20___ minutes.
[2025-03-02] MEDS: Magnesium Hydrox/Alum Hydrox 30 ML ORAL.SUSP PO ×2 (10:03→19:43)
[2025-03-02] MEDS: Milk of Magnesia 30 ML ORAL.SUSP PO (10:03)
[2025-03-02] MEDS: diphenhydrAMINE HCL 25 MG CAPSULE 50 MG PO (13:14)
[2025-03-02 16:13] LABS: Anion Gap 9 (12-20); Blood Urea Nitrogen 19 mg/dL (9-16); Carbon Dioxide 29 mmol/L (22-29); Chloride 102 mmol/L (96-108); Creatinine Clr Calc Pharmacy 103.4; Estimated Glomerular Filt Rate > 60; Potassium 4.2 mmol/L (3.3-5.1); Sodium 136 mmol/L (135-145)
[2025-03-02 16:41] LABS: Lithium 0.11 mmol/L (0.60-1.20)
[2025-03-02 20:00] VITALS: BP 142/86; PULSE 82; RESP 16; TEMP 36.8; O2SAT 99
[2025-03-02] MEDS: risperiDONE 2 MG TABLET PO (20:08)
[2025-03-02] MEDS: Prazosin HCL 1 MG CAPSULE PO (20:08)
[2025-03-02] MEDS: traZODone HCL 50 MG TABLET PO (21:07)
[2025-03-03 08:47] VITALS: BP 128/77; PULSE 88; RESP 16; TEMP 36.4; O2SAT 98
[2025-03-03] MEDS: Lithium Carbonate 300 MG TABLET 150 MG PO (08:48)
[2025-03-03] MEDS: QUEtiapine Fumarate 25 MG TABLET PO ×2 (08:54→13:40)
[2025-03-03] MEDS: Acetaminophen 325 MG TABLET 650 MG PO ×2 (08:54→19:28)
--- NOTE | 2025-03-03 10:44 | HO.PSYCHPN ---
Subjective Subjective Date of Service: 03/03/25 Reason For Visit: Schizophrenia Subjective Notes: Conditional Voluntary Interim History: Pt slept through the night. He initially denied any concerns stating he is much better because he was restarted on medications. during the day, he presented as more suspicious and paranoid towards staff. He requested several prn somewhat agitated. He denied SI/HI. Review of Systems Review of Systems Denies any shortness of breath, chest pain, dizziness, lightheadedness, abdominal pain or discomfort, nausea vomiting or diarrhea Mental Status Exam Mental Status Exam Narrative: Pt is alert and oriented; behavior is cooperative and calm; dressed in casual attire; mood is described as good; eye contact appropriate; Speech is normal rate, volume and not pressured; thought process is organized; focused on discharge; denies SI/HI/VH/AH. Diagnostics Vital Signs (24Hr): Vital Signs - 24 hr 03/02/25 20:00 03/03/25 08:47 Temperature 98.2 F 97.6 F Pulse Rate 82 88 Respiratory Rate 16 16 Blood Pressure 142/86 H 128/77 Pulse Oximetry 99 98 Oxygen Delivery Method Room Air Room Air BMI result Body Mass Index 20.8 Labs 03/02/25 15:48 Labs: Laboratory Results - last 48 hr 03/02/25 15:48 Sodium 136 Potassium 4.2 Chloride 102 Carbon Dioxide 29 Anion Gap 9 L BUN 19 H Creatinine 1.01 Estim Creat Clear Calc 103.4 Estimated GFR > 60 [place] 0.11 L Medications Medications Current Medications Acetaminophen (Acetaminophen 325 Mg Tablet) 650 mg PO Q6H PRN PRN Reason: Headache/Pain, Scale 1-10 Last Admin: 03/03/25 08:54 Dose: 650 mg Al Hydroxide/Mg Hydroxide (Magnesium Hydrox/Alum Hydrox 30 Ml Oral.Susp) 30 ml PO Q6H PRN PRN Reason: Heartburn/Nausea Last Admin: 03/02/25 19:43 Dose: 30 ml Diphenhydramine HCl (Diphenhydramine Hcl 25 Mg Capsule) 50 mg PO Q8H PRN PRN Reason: Allergic Symptoms Last Admin: 03/02/25 13:14 Dose: 50 mg Haloperidol Lactate (Haloperidol Lactate 5 Mg/Ml Vial) 5 mg IM DAILY PRN PRN Reason: Psychosis Hydroxyzine HCl (Hydroxyzine Hcl 25 Mg Tablet) 25 mg PO Q6H PRN PRN Reason: mild anxiety Last Admin: 03/02/25 15:53 Dose: 25 mg [place] Carbonate ([place] Carbonate 300 Mg Tablet) 150 mg PO DAILY MARIBEL Last Admin: 03/03/25 08:48 Dose: 150 mg Magnesium Hydroxide (Milk Of Magnesia 30 Ml Oral.Susp) 30 ml PO DAILY PRN PRN Reason: Constipation Last Admin: 03/02/25 10:03 Dose: 30 ml Nicotine Polacrilex (Nicotine Polacrilex 2 Mg Gum) 4 mg BUCCAL Q2H PRN PRN Reason: Nicotine Cravings Last Admin: 02/28/25 14:30 Dose: 4 mg Prazosin HCl (Prazosin Hcl 1 Mg Capsule) 1 mg PO BEDTIME MARIBEL; Protocol Last Admin: 03/02/25 20:08 Dose: 1 mg Quetiapine Fumarate (Quetiapine Fumarate 25 Mg Tablet) 25 mg PO TID PRN PRN Reason: agitation Last Admin: 03/03/25 08:54 Dose: 25 mg Risperidone (Risperidone 2 Mg Tablet) 2 mg PO BEDTIME MARIBEL Last Admin: 03/02/25 20:08 Dose: 2 mg Trazodone HCl (Trazodone Hcl 50 Mg Tablet) 50 mg PO BEDTIME MRX1 PRN PRN Reason: Insomnia Last Admin: 03/02/25 21:07 Dose: 50 mg Allergies Allergies Allergy/AdvReac Type Severity Reaction Status Date / Time benztropine [From Cogentin] Allergy Anaphylaxis Verified 02/22/25 23:47 valproic acid Allergy Anaphylaxis Verified 02/22/25 23:47 Assessment & Plan Assessment & Plan (1) Schizophrenia: Status: Acute Code(s): F20.9 - Schizophrenia, unspecified (2) PTSD (post-traumatic stress disorder): Status: Acute Code(s): F43.10 - Post-traumatic stress disorder, unspecified (3) Cocaine use disorder: Status: Acute Code(s): F14.10 - Cocaine abuse, uncomplicated Plan Patient is a 34-year-old male with history of schizophrenia, PTSD, and cocaine use disorder who presented to ER due to medication noncompliance despite being on a [facility] order. Plan: CV 15 minute safety checks Continue home medications obtain collateral encourage groups referral to outpatient therapy discharge planning 02/24: Active on unit. social with peers. medication compliant. patient reports having some anxiety ;pt stated, I'm trying to draw to keep myself busy and not be anxious . encouraged to attend groups. denies SI/HI/VH/AH. Continue current tx plan 02/25: Pacing unit hallway. Patient reports he feels he is doing better today; pt stated, I'm doing self therapy and listening to music to keep myself calm . denies SI/HI/VH/AH. per nursing, slept 5 hours. Continue current tx plan. 02/26: Patient reports feeling good ; he reports poor sleep last nigh d/t nightmares. Discussed starting prazosin. Pt reports he would like to think about it . He reports feeling constantly hungry from medications. denies SI/HI/VH/AH. Continue current tx plan. 02/27: Active on unit. Bizarre today. asking multiple people their zodiac sign and age. Pt stated, I'm trying to keep myself calm because I feel agitated. The Olanzapine is helping . When asked what is making him agitated, pt is vague and unable to give reasoning. denies SI/HI/VH/AH. Risperidal increased to 1mg PO daily per [place] Order. PRN Haldol IM ordered if pt declines Risperidal. 02/28: feeling quite well on meds but still appears very symptomatic. informed he is on very low doses of medication and that he can expect them to be increased. 03/01: Patient reports feeling agitated but states its from nothing in particular . Pt stated, I feel the zyprexa makes me more agitated than calm me down ; discussed medications. Pt agreed to increase in Risperidal to 2mg and having PRN Seroquel. Pt reports nightmares the past few nights; discussed starting Prazosin, pt agreed to trial. Start: Prazosin 1mg PO bedtime. denies SI/HI/VH/AH. 03/02: Signed 3 day notice. 3 day up on 02/04/25. Patient reports feeling better with Seroquel. Pt stated, the Seroquel is helping me the most so far. It eases my frustration and relax's me . denies any side effects. Patient reports he would like to go back home because he feels improved. denies SI/HI/VH/AH. continue current tx plan. 03/03 increase risperidone to 2mg po BID. d/c seroquel 25mg po bid prn added olanzapine 10mg po q6h prn agitation. Reason for continued inpatient stay Substantial Risk for: inability to function Time Spent With Patient Time: Total time managing care of this patient today ____ minutes.
[2025-03-03] MEDS: Magnesium Hydrox/Alum Hydrox 30 ML ORAL.SUSP PO (11:27)
[2025-03-03] MEDS: hydrOXYzine HCL 25 MG TABLET PO ×2 (11:27→19:28)
[2025-03-03] MEDS: Milk of Magnesia 30 ML ORAL.SUSP PO (13:40)
[2025-03-03] MEDS: Nicotine Polacrilex 2 MG GUM 4 MG BUCCAL (13:44)
[2025-03-03] MEDS: risperiDONE 2 MG TABLET PO ×2 (15:25→20:23)
[2025-03-03] MEDS: OLANZapine ODT 10 MG TAB.RAPDIS TRANSLINGU (19:28)
[2025-03-03 20:00] VITALS: BP 147/78; PULSE 87; RESP 16; TEMP 36.9; O2SAT 99
[2025-03-03] MEDS: traZODone HCL 50 MG TABLET PO (20:23)
[2025-03-03] MEDS: Prazosin HCL 1 MG CAPSULE PO (20:23)
[2025-03-04 07:24] VITALS: BP 134/60; PULSE 86; TEMP 36.4; O2SAT 99
[2025-03-04] MEDS: Lithium Carbonate 300 MG TABLET 150 MG PO (08:12)
[2025-03-04] MEDS: risperiDONE 2 MG TABLET PO ×2 (08:13→20:19)
[2025-03-04] MEDS: Acetaminophen 325 MG TABLET 650 MG PO (10:19)
[2025-03-04] MEDS: QUEtiapine Fumarate 50 MG TABLET PO ×2 (10:23→20:19)
[2025-03-04 20:00] VITALS: BP 120/66; PULSE 76; RESP 18; TEMP 36.9; O2SAT 99
[2025-03-04 20:19] VITALS: BP 120/66
[2025-03-04] MEDS: Prazosin HCL 1 MG CAPSULE PO (20:19)
--- NOTE | 2025-03-04 21:51 | HO.PSYCHPN ---
Subjective Subjective Date of Service: 03/04/25 Reason For Visit: Schizophrenia Subjective Notes: Conditional Voluntary Interim History: Pt slept through the night. Pt reports seroquel higher doses is more effective than olanzapine. He had been targeting staff and easily frustrated when redirected. He seemed suspicious towards particular staff who he thinks is doing things on purpose to provoke him. Review of Systems Review of Systems Denies any shortness of breath, chest pain, dizziness, lightheadedness, abdominal pain or discomfort, nausea vomiting or diarrhea Mental Status Exam Mental Status Exam Narrative: Pt is alert and oriented; behavior is cooperative and calm; dressed in casual attire; mood is described as good; eye contact appropriate; Speech is normal rate, volume and not pressured; thought process is organized; focused on discharge; denies SI/HI/VH/AH. Diagnostics Vital Signs (24Hr): Vital Signs - 24 hr 03/04/25 07:24 03/04/25 20:00 03/04/25 20:19 Temperature 97.6 F 98.4 F Pulse Rate 86 76 Respiratory Rate 18 Blood Pressure 134/60 120/66 120/66 Pulse Oximetry 99 99 Oxygen Delivery Method Room Air Room Air BMI result Body Mass Index 20.8 Labs 03/02/25 15:48 Medications Medications Current Medications Acetaminophen (Acetaminophen 325 Mg Tablet) 650 mg PO Q6H PRN PRN Reason: Headache/Pain, Scale 1-10 Last Admin: 03/04/25 10:19 Dose: 650 mg Al Hydroxide/Mg Hydroxide (Magnesium Hydrox/Alum Hydrox 30 Ml Oral.Susp) 30 ml PO Q6H PRN PRN Reason: Heartburn/Nausea Last Admin: 03/03/25 11:27 Dose: 30 ml Diphenhydramine HCl (Diphenhydramine Hcl 25 Mg Capsule) 50 mg PO Q8H PRN PRN Reason: Allergic Symptoms Last Admin: 03/02/25 13:14 Dose: 50 mg Haloperidol Lactate (Haloperidol Lactate 5 Mg/Ml Vial) 5 mg IM DAILY PRN PRN Reason: Psychosis Hydroxyzine HCl (Hydroxyzine Hcl 25 Mg Tablet) 25 mg PO Q6H PRN PRN Reason: mild anxiety Last Admin: 03/03/25 19:28 Dose: 25 mg [place] Carbonate ([place] Carbonate 300 Mg Tablet) 150 mg PO DAILY MARIBEL Last Admin: 03/04/25 08:12 Dose: 150 mg Magnesium Hydroxide (Milk Of Magnesia 30 Ml Oral.Susp) 30 ml PO DAILY PRN PRN Reason: Constipation Last Admin: 03/03/25 13:40 Dose: 30 ml Nicotine Polacrilex (Nicotine Polacrilex 2 Mg Gum) 4 mg BUCCAL Q2H PRN PRN Reason: Nicotine Cravings Last Admin: 03/03/25 13:44 Dose: 4 mg Prazosin HCl (Prazosin Hcl 1 Mg Capsule) 1 mg PO BEDTIME MARIBEL; Protocol Last Admin: 03/04/25 20:19 Dose: 1 mg Quetiapine Fumarate (Quetiapine Fumarate 50 Mg Tablet) 50 mg PO Q6H PRN PRN Reason: moderate anxiety Last Admin: 03/04/25 20:19 Dose: 50 mg Quetiapine Fumarate (Quetiapine Fumarate 100 Mg Tablet) 100 mg PO TID PRN PRN Reason: agitation Risperidone (Risperidone 2 Mg Tablet) 2 mg PO BID MARIBEL Last Admin: 03/04/25 20:19 Dose: 2 mg Trazodone HCl (Trazodone Hcl 50 Mg Tablet) 50 mg PO BEDTIME MRX1 PRN PRN Reason: Insomnia Last Admin: 03/03/25 20:23 Dose: 50 mg Allergies Allergies Allergy/AdvReac Type Severity Reaction Status Date / Time benztropine [From Cogentin] Allergy Anaphylaxis Verified 02/22/25 23:47 valproic acid Allergy Anaphylaxis Verified 02/22/25 23:47 Assessment & Plan Assessment & Plan (1) Schizophrenia: Status: Acute Code(s): F20.9 - Schizophrenia, unspecified (2) PTSD (post-traumatic stress disorder): Status: Acute Code(s): F43.10 - Post-traumatic stress disorder, unspecified (3) Cocaine use disorder: Status: Acute Code(s): F14.10 - Cocaine abuse, uncomplicated Plan Patient is a 34-year-old male with history of schizophrenia, PTSD, and cocaine use disorder who presented to ER due to medication noncompliance despite being on a [facility] order. Plan: CV 15 minute safety checks Continue home medications obtain collateral encourage groups referral to outpatient therapy discharge planning 02/24: Active on unit. social with peers. medication compliant. patient reports having some anxiety ;pt stated, I'm trying to draw to keep myself busy and not be anxious . encouraged to attend groups. denies SI/HI/VH/AH. Continue current tx plan 02/25: Pacing unit hallway. Patient reports he feels he is doing better today; pt stated, I'm doing self therapy and listening to music to keep myself calm . denies SI/HI/VH/AH. per nursing, slept 5 hours. Continue current tx plan. 02/26: Patient reports feeling good ; he reports poor sleep last nigh d/t nightmares. Discussed starting prazosin. Pt reports he would like to think about it . He reports feeling constantly hungry from medications. denies SI/HI/VH/AH. Continue current tx plan. 02/27: Active on unit. Bizarre today. asking multiple people their zodiac sign and age. Pt stated, I'm trying to keep myself calm because I feel agitated. The Olanzapine is helping . When asked what is making him agitated, pt is vague and unable to give reasoning. denies SI/HI/VH/AH. Risperidal increased to 1mg PO daily per [place] Order. PRN Haldol IM ordered if pt declines Risperidal. 02/28: feeling quite well on meds but still appears very symptomatic. informed he is on very low doses of medication and that he can expect them to be increased. 03/01: Patient reports feeling agitated but states its from nothing in particular . Pt stated, I feel the zyprexa makes me more agitated than calm me down ; discussed medications. Pt agreed to increase in Risperidal to 2mg and having PRN Seroquel. Pt reports nightmares the past few nights; discussed starting Prazosin, pt agreed to trial. Start: Prazosin 1mg PO bedtime. denies SI/HI/VH/AH. 03/02: Signed 3 day notice. 3 day up on 02/04/25. Patient reports feeling better with Seroquel. Pt stated, the Seroquel is helping me the most so far. It eases my frustration and relax's me . denies any side effects. Patient reports he would like to go back home because he feels improved. denies SI/HI/VH/AH. continue current tx plan. 03/03 added olanzapine 10mg po q6h prn agitation. increase risperidone 2mg po BID. 03/04 d/c olanzapine, restart seroquel 100mg po BID Prn for severe agitation and seroquel 50mg q6h prn for anxious mood--> at request of pt who rather take seroquel prn than olanzapine prn. Reason for continued inpatient stay Substantial Risk for: inability to function Time Spent With Patient Time: Total time managing care of this patient today ____ minutes.
[2025-03-05] MEDS: QUEtiapine Fumarate 50 MG TABLET PO ×2 (05:39→11:52)
[2025-03-05] MEDS: Acetaminophen 325 MG TABLET 650 MG PO ×2 (05:39→15:25)
[2025-03-05 07:15] VITALS: BP 146/83; PULSE 96; RESP 16; TEMP 36.4; O2SAT 99
[2025-03-05 08:37] VITALS: BP 128/71; PULSE 102; TEMP 37.4
[2025-03-05] MEDS: risperiDONE 2 MG TABLET PO ×2 (08:37→20:30)
[2025-03-05] MEDS: Lithium Carbonate 300 MG TABLET 150 MG PO (08:37)
--- NOTE | 2025-03-05 09:41 | P.PNPSI_ITS ---
Subjective Subjective Date of Service: 03/05/25 Reason For Visit: Schizophrenia Subjective Notes: 3 Day Interim History: Active on unit. pacing unit hallway and listening to music on unit headphones. Pt reports feeling okay ; pt stated, I'm doing my best to stay level headed. I'm taking my medications and going to groups . 3 day up on 03/07/25. denies SI/HI/VH/AH. Continue current tx plan. Medication Compliance: Yes Side effects from medications: No Diagnostics Vital Signs (24Hr): Vital Signs - 24 hr 03/04/25 20:00 03/04/25 20:19 03/05/25 07:15 Temperature 98.4 F 97.5 F Pulse Rate 76 96 Respiratory Rate 18 16 Blood Pressure 120/66 120/66 146/83 H Pulse Oximetry 99 99 Oxygen Delivery Method Room Air Room Air 03/05/25 08:37 Temperature 99.3 F Pulse Rate 102 H Respiratory Rate Blood Pressure 128/71 Pulse Oximetry Oxygen Delivery Method BMI result Body Mass Index 20.8 Labs 03/02/25 15:48 Medications Medications Current Medications Acetaminophen (Acetaminophen 325 Mg Tablet) 650 mg PO Q6H PRN PRN Reason: Headache/Pain, Scale 1-10 Last Admin: 03/05/25 05:39 Dose: 650 mg Al Hydroxide/Mg Hydroxide (Magnesium Hydrox/Alum Hydrox 30 Ml Oral.Susp) 30 ml PO Q6H PRN PRN Reason: Heartburn/Nausea Last Admin: 03/03/25 11:27 Dose: 30 ml Diphenhydramine HCl (Diphenhydramine Hcl 25 Mg Capsule) 50 mg PO Q8H PRN PRN Reason: Allergic Symptoms Last Admin: 03/02/25 13:14 Dose: 50 mg Haloperidol Lactate (Haloperidol Lactate 5 Mg/Ml Vial) 5 mg IM DAILY PRN PRN Reason: Psychosis Hydroxyzine HCl (Hydroxyzine Hcl 25 Mg Tablet) 25 mg PO Q6H PRN PRN Reason: mild anxiety Last Admin: 03/03/25 19:28 Dose: 25 mg [place] Carbonate ([place] Carbonate 300 Mg Tablet) 150 mg PO DAILY MARIBEL Last Admin: 03/05/25 08:37 Dose: 150 mg Magnesium Hydroxide (Milk Of Magnesia 30 Ml Oral.Susp) 30 ml PO DAILY PRN PRN Reason: Constipation Last Admin: 03/03/25 13:40 Dose: 30 ml Nicotine Polacrilex (Nicotine Polacrilex 2 Mg Gum) 4 mg BUCCAL Q2H PRN PRN Reason: Nicotine Cravings Last Admin: 03/03/25 13:44 Dose: 4 mg Prazosin HCl (Prazosin Hcl 1 Mg Capsule) 1 mg PO BEDTIME MARIBEL; Protocol Last Admin: 03/04/25 20:19 Dose: 1 mg Quetiapine Fumarate (Quetiapine Fumarate 50 Mg Tablet) 50 mg PO Q6H PRN PRN Reason: moderate anxiety Last Admin: 03/05/25 05:39 Dose: 50 mg Quetiapine Fumarate (Quetiapine Fumarate 100 Mg Tablet) 100 mg PO TID PRN PRN Reason: agitation Risperidone (Risperidone 2 Mg Tablet) 2 mg PO BID MARIBEL Last Admin: 03/05/25 08:37 Dose: 2 mg Trazodone HCl (Trazodone Hcl 50 Mg Tablet) 50 mg PO BEDTIME MRX1 PRN PRN Reason: Insomnia Last Admin: 03/03/25 20:23 Dose: 50 mg Allergies Allergies Allergy/AdvReac Type Severity Reaction Status Date / Time benztropine [From Cogentin] Allergy Anaphylaxis Verified 02/22/25 23:47 valproic acid Allergy Anaphylaxis Verified 02/22/25 23:47 Assessment & Plan Assessment & Plan (1) Schizophrenia: Status: Acute Code(s): F20.9 - Schizophrenia, unspecified (2) PTSD (post-traumatic stress disorder): Status: Acute Code(s): F43.10 - Post-traumatic stress disorder, unspecified (3) Cocaine use disorder: Status: Acute Code(s): F14.10 - Cocaine abuse, uncomplicated Plan Patient is a 34-year-old male with history of schizophrenia, PTSD, and cocaine use disorder who presented to ER due to medication noncompliance despite being on a [facility] order. Plan: CV 15 minute safety checks Continue home medications obtain collateral encourage groups referral to outpatient therapy discharge planning 02/24: Active on unit. social with peers. medication compliant. patient reports having some anxiety ;pt stated, I'm trying to draw to keep myself busy and not be anxious . encouraged to attend groups. denies SI/HI/VH/AH. Continue current tx plan 02/25: Pacing unit hallway. Patient reports he feels he is doing better today; pt stated, I'm doing self therapy and listening to music to keep myself calm . denies SI/HI/VH/AH. per nursing, slept 5 hours. Continue current tx plan. 02/26: Patient reports feeling good ; he reports poor sleep last nigh d/t nightmares. Discussed starting prazosin. Pt reports he would like to think about it . He reports feeling constantly hungry from medications. denies SI/HI/VH/AH. Continue current tx plan. 02/27: Active on unit. Bizarre today. asking multiple people their zodiac sign and age. Pt stated, I'm trying to keep myself calm because I feel agitated. The Olanzapine is helping . When asked what is making him agitated, pt is vague and unable to give reasoning. denies SI/HI/VH/AH. Risperidal increased to 1mg PO daily per [place] Order. PRN Haldol IM ordered if pt declines Risperidal. 02/28: feeling quite well on meds but still appears very symptomatic. informed he is on very low doses of medication and that he can expect them to be increased. 03/01: Patient reports feeling agitated but states its from nothing in particular . Pt stated, I feel the zyprexa makes me more agitated than calm me down ; discussed medications. Pt agreed to increase in Risperidal to 2mg and having PRN Seroquel. Pt reports nightmares the past few nights; discussed starting Prazosin, pt agreed to trial. Start: Prazosin 1mg PO bedtime. denies SI/HI/VH/AH. 03/02: Signed 3 day notice. 3 day up on 02/04/25. Patient reports feeling better with Seroquel. Pt stated, the Seroquel is helping me the most so far. It eases my frustration and relax's me . denies any side effects. Patient reports he would like to go back home because he feels improved. denies SI/HI/VH/AH. continue current tx plan. 03/03 increase risperidone to 2mg po BID. d/c seroquel 25mg po bid prn added olanzapine 10mg po q6h prn agitation. 03/05: Active on unit. pacing unit hallway and listening to music on unit headphones. Pt reports feeling okay ; pt stated, I'm doing my best to stay level headed. I'm taking my medications and going to groups . 3 day up on 03/07/25. denies SI/HI/VH/AH. Continue current tx plan. Patient educated on: diagnosis, medication risk/benefits and therapeutic strategies Reason for continued inpatient stay Substantial Risk for: med/psych decompensation Time Spent With Patient Time: Total time managing care of this patient today __20__ minutes.
[2025-03-05] MEDS: QUEtiapine Fumarate 100 MG TABLET PO (14:14)
[2025-03-05] MEDS: Magnesium Hydrox/Alum Hydrox 30 ML ORAL.SUSP PO (15:25)
[2025-03-05] MEDS: Milk of Magnesia 30 ML ORAL.SUSP PO (15:25)
[2025-03-05 20:00] VITALS: BP 126/68; RESP 14; TEMP 36.8; O2SAT 97
[2025-03-05] MEDS: Prazosin HCL 1 MG CAPSULE PO (20:29)
[2025-03-06 08:13] VITALS: BP 126/73; PULSE 81; RESP 18; O2SAT 95
[2025-03-06] MEDS: Lithium Carbonate 300 MG TABLET 150 MG PO (08:34)
[2025-03-06] MEDS: risperiDONE 2 MG TABLET PO ×2 (08:34→20:30)
--- NOTE | 2025-03-06 08:58 | HO.PSYCHPN ---
Subjective Subjective Date of Service: 03/06/25 Reason For Visit: Schizophrenia Subjective Notes: 3 Day Interim History: Active on unit. social with peers. attending groups. Patient reports feeling good today and looking forward to discharging tomorrow. 3 day up on 03/07/25. Pt stated, I'm going to keep taking my medication and staff if there if I have questions . denies SI/HI/VH/AH. Continue current tx plan. Medication Compliance: Yes Side effects from medications: No Attending Groups: Yes Mental Status Exam Mental Status Exam Narrative: Pt is alert and oriented; behavior is cooperative and calm; dressed in casual attire; mood is described as good; eye contact appropriate; Speech is normal rate, volume and not pressured; thought process is organized; focused on discharge; denies SI/HI/VH/AH. Diagnostics Vital Signs (24Hr): Vital Signs - 24 hr 03/05/25 20:00 03/06/25 08:13 Temperature 98.2 F Pulse Rate 81 Respiratory Rate 14 18 Blood Pressure 126/68 126/73 Pulse Oximetry 97 95 Oxygen Delivery Method Room Air Room Air BMI result Body Mass Index 20.8 Labs 03/02/25 15:48 Medications Medications Current Medications Acetaminophen (Acetaminophen 325 Mg Tablet) 650 mg PO Q6H PRN PRN Reason: Headache/Pain, Scale 1-10 Last Admin: 03/05/25 15:25 Dose: 650 mg Al Hydroxide/Mg Hydroxide (Magnesium Hydrox/Alum Hydrox 30 Ml Oral.Susp) 30 ml PO Q6H PRN PRN Reason: Heartburn/Nausea Last Admin: 03/05/25 15:25 Dose: 30 ml Diphenhydramine HCl (Diphenhydramine Hcl 25 Mg Capsule) 50 mg PO Q8H PRN PRN Reason: Allergic Symptoms Last Admin: 03/02/25 13:14 Dose: 50 mg Haloperidol Lactate (Haloperidol Lactate 5 Mg/Ml Vial) 5 mg IM DAILY PRN PRN Reason: Psychosis Hydroxyzine HCl (Hydroxyzine Hcl 25 Mg Tablet) 25 mg PO Q6H PRN PRN Reason: mild anxiety Last Admin: 03/03/25 19:28 Dose: 25 mg [place] Carbonate ([place] Carbonate 300 Mg Tablet) 150 mg PO DAILY MARIBEL Last Admin: 03/06/25 08:34 Dose: 150 mg Magnesium Hydroxide (Milk Of Magnesia 30 Ml Oral.Susp) 30 ml PO DAILY PRN PRN Reason: Constipation Last Admin: 03/05/25 15:25 Dose: 30 ml Nicotine Polacrilex (Nicotine Polacrilex 2 Mg Gum) 4 mg BUCCAL Q2H PRN PRN Reason: Nicotine Cravings Last Admin: 03/03/25 13:44 Dose: 4 mg Prazosin HCl (Prazosin Hcl 1 Mg Capsule) 1 mg PO BEDTIME MARIBEL; Protocol Last Admin: 03/05/25 20:29 Dose: 1 mg Quetiapine Fumarate (Quetiapine Fumarate 50 Mg Tablet) 50 mg PO Q6H PRN PRN Reason: moderate anxiety Last Admin: 03/05/25 11:52 Dose: 50 mg Quetiapine Fumarate (Quetiapine Fumarate 100 Mg Tablet) 100 mg PO TID PRN PRN Reason: agitation Last Admin: 03/05/25 14:14 Dose: 100 mg Risperidone (Risperidone 2 Mg Tablet) 2 mg PO BID MARIBEL Last Admin: 03/06/25 08:34 Dose: 2 mg Trazodone HCl (Trazodone Hcl 50 Mg Tablet) 50 mg PO BEDTIME MRX1 PRN PRN Reason: Insomnia Last Admin: 03/03/25 20:23 Dose: 50 mg Allergies Allergies Allergy/AdvReac Type Severity Reaction Status Date / Time benztropine [From Cogentin] Allergy Anaphylaxis Verified 02/22/25 23:47 valproic acid Allergy Anaphylaxis Verified 02/22/25 23:47 Assessment & Plan Assessment & Plan (1) Schizophrenia: Status: Acute Code(s): F20.9 - Schizophrenia, unspecified (2) PTSD (post-traumatic stress disorder): Status: Acute Code(s): F43.10 - Post-traumatic stress disorder, unspecified (3) Cocaine use disorder: Status: Acute Code(s): F14.10 - Cocaine abuse, uncomplicated Plan Patient is a 34-year-old male with history of schizophrenia, PTSD, and cocaine use disorder who presented to ER due to medication noncompliance despite being on a Jose G's order. Plan: CV 15 minute safety checks Continue home medications obtain collateral encourage groups referral to outpatient therapy discharge planning 02/24: Active on unit. social with peers. medication compliant. patient reports having some anxiety ;pt stated, I'm trying to draw to keep myself busy and not be anxious . encouraged to attend groups. denies SI/HI/VH/AH. Continue current tx plan 02/25: Pacing unit hallway. Patient reports he feels he is doing better today; pt stated, I'm doing self therapy and listening to music to keep myself calm . denies SI/HI/VH/AH. per nursing, slept 5 hours. Continue current tx plan. 02/26: Patient reports feeling good ; he reports poor sleep last nigh d/t nightmares. Discussed starting prazosin. Pt reports he would like to think about it . He reports feeling constantly hungry from medications. denies SI/HI/VH/AH. Continue current tx plan. 02/27: Active on unit. Bizarre today. asking multiple people their zodiac sign and age. Pt stated, I'm trying to keep myself calm because I feel agitated. The Olanzapine is helping . When asked what is making him agitated, pt is vague and unable to give reasoning. denies SI/HI/VH/AH. Risperidal increased to 1mg PO daily per [place] Order. PRN Haldol IM ordered if pt declines Risperidal. 02/28: feeling quite well on meds but still appears very symptomatic. informed he is on very low doses of medication and that he can expect them to be increased. 03/01: Patient reports feeling agitated but states its from nothing in particular . Pt stated, I feel the zyprexa makes me more agitated than calm me down ; discussed medications. Pt agreed to increase in Risperidal to 2mg and having PRN Seroquel. Pt reports nightmares the past few nights; discussed starting Prazosin, pt agreed to trial. Start: Prazosin 1mg PO bedtime. denies SI/HI/VH/AH. 03/02: Signed 3 day notice. 3 day up on 02/04/25. Patient reports feeling better with Seroquel. Pt stated, the Seroquel is helping me the most so far. It eases my frustration and relax's me . denies any side effects. Patient reports he would like to go back home because he feels improved. denies SI/HI/VH/AH. continue current tx plan. 03/03 increase risperidone to 2mg po BID. d/c seroquel 25mg po bid prn added olanzapine 10mg po q6h prn agitation. 03/05: Active on unit. pacing unit hallway and listening to music on unit headphones. Pt reports feeling okay ; pt stated, I'm doing my best to stay level headed. I'm taking my medications and going to groups . 3 day up on 03/07/25. denies SI/HI/VH/AH. Continue current tx plan. 03/06: Active on unit. social with peers. attending groups. Patient reports feeling good today and looking forward to discharging tomorrow. 3 day up on 03/07/25. Pt stated, I'm going to keep taking my medication and staff if there if I have questions . denies SI/HI/VH/AH. Continue current tx plan. Patient educated on: diagnosis, medication risk/benefits and therapeutic strategies Reason for continued inpatient stay Substantial Risk for: stable for discharge Time Spent With Patient Time: Total time managing care of this patient today _20___ minutes.
[2025-03-06] MEDS: QUEtiapine Fumarate 50 MG TABLET PO ×2 (11:28→17:44)
[2025-03-06] MEDS: Acetaminophen 325 MG TABLET 650 MG PO (15:04)
[2025-03-06 20:00] VITALS: BP 154/83; PULSE 88; RESP 16; TEMP 36.4; O2SAT 98
[2025-03-06] MEDS: QUEtiapine Fumarate 100 MG TABLET PO (20:29)
[2025-03-06] MEDS: Prazosin HCL 1 MG CAPSULE PO (20:30)
[2025-03-07] MEDS: QUEtiapine Fumarate 50 MG TABLET PO (07:53)
[2025-03-07] MEDS: risperiDONE 2 MG TABLET PO (07:53)
[2025-03-07] MEDS: Lithium Carbonate 300 MG TABLET 150 MG PO (07:54)
[2025-03-07 08:08] VITALS: BP 130/58; PULSE 92; RESP 16; TEMP 36.6; O2SAT 98
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
[2025-03-07] MEDS: Naloxone HCl Nasal TAKE HOME 4 MG SPRAY 8 MG NOSTRILALT (10:57)
== END 2025-03-07 11:00 | disposition home or self-care (01) | DRG 885 ==
PROVIDERS: Clinical Nurse Specialist Psychiatric/Mental Health, Adult; Admitting Provider Psychiatry & Neurology Psychiatry; PCP Physician Assistant; Responsible Provider Registered Nurse; Visit Provider Psychiatry & Neurology Psychiatry
DX: F20.9 Schizophrenia, unspecified (principal); F43.10 Post-traumatic stress disorder, unspecified; F14.10 Cocaine abuse, uncomplicated; Z79.899 Other long term (current) drug therapy
CPT/HCPCS: 36415; 80051; 80053; 80061; 80178; 82565; 82607; 82746; 83036; 83735; 84439; 84443; 84520

== ENCOUNTER → 2025-02-22 19:08 | Outpatient (BNV) | payer MEDICARE, MEDICAID, SELFPAY | PROVIDERS: Admitting Provider Psychiatry & Neurology Psychiatry; PCP Physician Assistant; Responsible Provider Registered Nurse; Visit Provider Nurse Practitioner Family | DX: Z00.8 Encounter for other general examination (principal) | CPT/HCPCS: 99429 ==

== ENCOUNTER → 2025-02-22 19:08 | Outpatient (BNV) | payer MEDICARE, MEDICAID, SELFPAY | PROVIDERS: Admitting Provider Psychiatry & Neurology Psychiatry; PCP Physician Assistant; Responsible Provider Registered Nurse; Visit Provider Registered Nurse | DX: F20.9 Schizophrenia, unspecified (principal); F14.10 Cocaine abuse, uncomplicated; F43.11 Post-traumatic stress disorder, acute | CPT/HCPCS: 90792; 99231; 99232 ==

== ENCOUNTER 2025-03-13 00:37 | Inpatient (IN) | payer MEDICARE, MEDICAID, SELFPAY ==
[2025-03-13] VITALS (7 sets, daily range): BP systolic 126–152; BP diastolic 67–80; PULSE 70–89; RESP 13–18; TEMP 36.6–36.9; O2SAT 96–100; BMI 20.3
--- NOTE | 2025-03-13 | ECG_ITS ---
Test Reason : PSYCH CLEARANCE Blood Pressure : */* mmHG Vent. Rate : 68 BPM Atrial Rate : 68 BPM P-R Int : 144 ms QRS Dur : 144 ms QT Int : 400 ms P-R-T Axes : 56 68 44 degrees QTcB Int : 425 ms Normal sinus rhythm with sinus arrhythmia Non-specific intra-ventricular conduction block Abnormal ECG No previous ECGs available Referred By: Ray Stout Electronically Signed By:
--- NOTE | 2025-03-13 00:40 | ED_ITS ---
HPI - Psych General Chief Complaint: Psychiatric Symptoms Stated Complaint: seeing and hearing things Time Seen by Provider: 03/13/25 00:40 Source: patient and old records reviewed Mode of arrival: ambulatory Limitations: no limitations History of Present Illness ED Provider: JARAD RAMIREZ Narrative: 34 yo male with PMH of schizophrenia, PTSD, cocaine use disorder, who comes in with c/o AH/VH. He used cocaine and smoked THC. He is laughing on arrival. He states he is taking his medications sometimes. He has no SI/HI. He states he has a safe place to live. He is here to talk to crisis. He denies trauma. complaint: hallucinations Onset (ago): day(s) (few) Duration: intermittent History of same: Yes Relieving factors: none Exacerbating factors: drug use Context: recent drug abuse Associated psychiatric symptoms: depression, auditory hallucinations and visual hallucinations Associated symptoms: denies other symptoms Treatments prior to arrival: none Related Data Home Medications ?Medication ?Instructions ?Recorded ?Confirmed lithium carbonate 150 mg capsule 150 mg PO DAILY 03/13/25 03/13/25 prazosin 1 mg capsule 1 mg PO BEDTIME 03/13/25 03/13/25 quetiapine 50 mg tablet 50 mg PO TID PRN Anxiety 03/13/25 03/13/25 risperidone 2 mg tablet 2 mg PO BID 03/13/25 03/13/25 Allergies Allergy/AdvReac Type Severity Reaction Status Date / Time benztropine [From Cogentin] Allergy Anaphylaxis Verified 03/13/25 00:45 valproic acid Allergy Anaphylaxis Verified 03/13/25 00:45 Review of Systems 2 Review of Systems: Constitutional : No Fever, No Chills ENT/Mouth : No Ear Pain, No Nasal Congestion, No sore throat Eyes: No Eye Pain, No Swelling, No Redness Cardiovascular : No Chest Pain, No SOB Respiratory : No Cough, No Sputum, No Dyspnea Gastrointestinal : No Nausea, No Vomiting, No Diarrhea, No Hematochezia, No Melena Genitourinary : No Dysuria, No Urinary Frequency, No Hematuria Musculoskeletal : No Myalgias Skin : No Skin Lesions, pos rash Neuro : No Weakness, No Numbness, No Paresthesias, No Dizziness, No Headache Psych : positive Anxiety, positive Depression, no SI/HI All other systems reviewed and are negative [facility] Past Medical History Attestation statement: The following information was validated with the patient. Source: old records reviewed Medical History (Updated 03/15/25 @ 00:02 by Terrie Paredes) Cocaine use disorder PTSD (post-traumatic stress disorder) Schizophrenia Social History Social History Household Members: Friend(s) Housing: Apartment Housing Other:: [facility] Housing Do you presently have visiting nurse or other home services: No Patient Tobacco Use Status: Never used Tobacco Tobacco use type: Cigarette e-Cigarette/Vaping Use: Never Used Second Hand Smoke Exposure: No Currently Displaying Signs/Symptoms of Drug Intoxication Withdrawal: No Have you been hit, kicked, punched, or otherwise hurt by someone within the past year? If so, by whom?: No Advance Directives: No Advance Directives Information Provided: No Do you have thoughts of harming others: None Do you have a plan to hurt others: No Plan Recently lost weight without trying: No How much weight loss: Not applicable Eating poorly because of decreased appetite: No Nutrition screen score: 0 Nutrition Risks: No Nutritional Risk Poor oral hygiene: No service: No Sexual orientation: Straight/Heterosexual Physical Exam 2 Vital Signs: Vital Signs: Last Vital Signs Temp 98.4 F 03/14/25 19:52 Pulse 100 03/14/25 19:52 Resp 18 03/14/25 19:52 BP 140/83 H 03/14/25 19:52 Pulse Ox 100 03/14/25 19:52 O2 Del Method Room Air 03/14/25 19:52 BMI result Body Mass Index 20.3 Appearance: Alert. Oriented X3. No acute distress. laughing to himself and responding to internal stimuli Eyes: Pupils equal, round and reactive to light. ENT: Pharynx normal. Neck: Normal inspection. Neck supple. CVS: Normal heart rate and rhythm. Pulses normal. Respiratory: No respiratory distress. Breath sounds normal. Abdomen: Soft and nontender. Gu: excoriated rash inner thighs but no overt cellulitis Skin: Skin warm and dry. Normal skin color. Normal skin turgor. Extremities: No lower extremity edema. No calf ttp Neuro: Oriented X 3. No motor deficit. No sensory deficit. CN2-12 intact Course Course Course Narrative: Time: 06:38 Date: 03/14/25 Provider: Ray Stout MD Patient in physician observation for psychiatric evaluation.? Patient has been in the emergency department for 29 hours. No acute events reported overnight. No current complaints. VS stable.? Patient is in bed search status. Will continue to monitor. Time: 13:35 , Date: 03/14/25 Provider: Ray Stout MD Physician observation ended at 13:35.Patient to be admitted as inpatient to psychiatry. Medications Administered Generic Name Dose Route Start Last Admin Trade Name Freq PRN Reason Stop Dose Admin Acetaminophen 650 mg 03/14/25 13:19 03/15/25 07:28 Acetaminophen 325 Mg Tablet PO 650 mg Q6H PRN Administration Headache/Pain, Scale 1-10 Hydroxyzine HCl 25 mg 03/14/25 13:19 03/14/25 18:17 Hydroxyzine Hcl 25 Mg Tablet PO 25 mg Q6H PRN Administration mild anxiety [place] Carbonate 150 mg 03/14/25 09:00 03/14/25 10:05 [place] Carbonate 300 Mg Tablet PO 150 mg DAILY MARIBEL Administration Mupirocin 1 appl 03/13/25 00:50 03/14/25 21:25 Mupirocin 2 % Oint 22 Gm Tube TOPICAL 03/20/25 00:49 Not Given BID MARIBEL Protocol Prazosin HCl 1 mg 03/13/25 21:00 03/14/25 20:14 Prazosin Hcl 1 Mg Capsule PO 1 mg BEDTIME MARIBEL Administration Protocol Quetiapine Fumarate 50 mg 03/13/25 20:21 03/15/25 07:28 Quetiapine Fumarate 50 Mg Tablet PO 50 mg TID PRN Administration Anxiety Risperidone 2 mg 03/13/25 21:00 03/14/25 20:15 Risperidone 2 Mg Tablet PO 2 mg BID MARIBEL Administration Trazodone HCl 50 mg 03/14/25 13:19 03/14/25 20:15 Trazodone Hcl 50 Mg Tablet PO 50 mg BEDTIME [id number] PRN Administration Insomnia Discontinued Medications Generic Name Dose Route Start Last Admin Trade Name Freq PRN Reason Stop Dose Admin Acetaminophen 975 mg 03/13/25 16:08 03/13/25 16:12 Acetaminophen 325 Mg Tablet PO 03/13/25 16:09 975 mg ONCE ONE Administration Acetaminophen 975 mg 03/14/25 11:31 03/14/25 11:35 Acetaminophen 325 Mg Tablet PO 03/14/25 11:32 975 mg ONCE STA Administration Lorazepam 2 mg 03/13/25 03:18 03/13/25 03:21 Lorazepam 1 Mg Tablet PO 03/13/25 03:19 2 mg ONCE ONE Administration Lorazepam 2 mg 03/13/25 16:07 03/13/25 16:13 Lorazepam 1 Mg Tablet PO 03/13/25 16:08 2 mg ONCE STA Administration Lorazepam 2 mg 03/14/25 11:31 03/14/25 11:35 Lorazepam 1 Mg Tablet PO 03/14/25 11:32 2 mg ONCE STA Administration Quetiapine Fumarate 50 mg 03/13/25 03:18 03/13/25 03:21 Quetiapine Fumarate 50 Mg Tablet PO 03/13/25 03:19 50 mg ONCE ONE Administration Quetiapine Fumarate 50 mg 03/13/25 16:07 03/13/25 16:13 Quetiapine Fumarate 50 Mg Tablet PO 03/13/25 16:08 50 mg ONCE ONE Administration Medical Decision Making Medical Decision Making MDM Narrative: 34 yo male with PMH of schizophrenia, PTSD, cocaine use disorder now here with AH/VH ?med compliance but no SI/HI. He also c/o excoriated rash on inner thighs at this time will obtain basic labs and start on mupirocin will refer to CARE team. Differential Diagnosis Differential Diagnoses: The differential diagnosis associated with the presentation includes schizophrenia, drug use Admission/Observation Consideration of admission/observation: Escalation of care including admission/observation considered physician observation started at 1244am pending CARE team. Consult Healthcare Provider Management of the patient was discussed with: Behavioral Health Provider Lab Data [facility] Lab Attestation statement: I reviewed the patient's lab results. 03/13/25 01:00 03/13/25 01:00 Labs: Lab Results 03/13/25 03/13/25 Range/Units 01:00 01:01 WBC 10.2 (4.8-10.8) X10*3/uL RBC 4.72 (4.60-5.80) X10*6/uL Hgb 13.0 L (14.0-18.0) g/dl Hct 39.3 L (42.0-52.0) % MCV 83.3 (80.0-98.0) fL MCH 27.5 (27.0-33.0) pg MCHC 33.1 (31.0-36.0) g/dl RDW 12.3 (11.0-16.0) % Plt Count 310 (160-400) X10*3/uL MPV 10.2 (9.4-12.4) fL Immature Gran % (Auto) 0.3 (0.0-0.4) % Neut % (Auto) 67.7 (45-73) % Lymph % (Auto) 22.5 (20-40) % [place] % (Auto) 8.3 (2-11) % Eos % (Auto) 0.8 (0-4) % Baso % (Auto) 0.4 (0-2) % Lymph # (Auto) 2.3 (1.2-4.9) X10*3/uL [place] # (Auto) 0.9 (0.1-1.2) X10*3/uL Eos # (Auto) 0.1 (0.0-0.4) X10*3/uL Baso # (Auto) 0.0 (0.0-0.2) X10*3/uL Abs Immat Gran (auto) 0.03 (0.00-0.03) X10*3/uL Absolute Neuts (auto) 6.9 (2.0-8.3) x10*3/uL Absolute Nucleated RBC 0.000 (0.0-0.012) X10*3/uL Nucleated RBC % (auto) 0.0 (0.0-0.2) /100WBC Sodium 144 (135-145) mmol/L Potassium 4.2 (3.3-5.1) mmol/L Chloride 106 (96-108) mmol/L Carbon Dioxide 27 (22-29) mmol/L Anion Gap 15 (12-20) BUN 12 (9-16) mg/dL Creatinine 1.01 (0.5-1.4) mg/dL Estim Creat Clear Calc 101.0 Estimated GFR > 60 Random Glucose 82 (60-115) mg/dL Calcium 9.9 (8.4-10.2) mg/dL Magnesium 2.2 (1.6-2.6) mg/dL Total Bilirubin 0.6 (0.0-1.0) mg/dL Direct Bilirubin 0.2 (0.0-0.5) mg/dL AST 42 H (5-37) U/L ALT 75 H (0-40) U/L Alkaline Phosphatase 98 (39-117) U/L Total Protein 7.7 (6.5-8.0) g/dL Albumin 5.0 (3.5-5.0) g/dL Urine Color Yellow Urine Appearance Clear Urine pH 7.0 (5.0-9.0) Ur Specific [place] <= 1.005 (1.005-1.025) Urine Protein Negative (Neg-Trace) mg/dL Urine Glucose (UA) Negative (Negative) mg/dL Urine Ketones Negative (Negative) mg/dL Urine Blood Negative (Negative) Urine Nitrite Negative (Negative) Ur Leukocyte Esterase Negative (Negative) Urine Opiates Screen Not Detected (Not Detect) Ur Buprenorphine Scrn Not Detected (Not Detect) ng/mL Ur Oxycodone Screen Not Detected (Not Detect) ng/mL Urine Methadone Screen Not Detected (Not Detect) ng/mL Urine Fentanyl Screen Not Detected (Not Detect) Ur Barbiturates Screen Not Detected (Not Detect) Ur Phencyclidine Scrn Not Detected (Not Detect) Ur Amphetamines Screen Not Detected (Not Detect) U Benzodiazepines Scrn Not Detected (Not Detect) [place] < 0.10 L (0.60-1.20) mmol/L Urine Cocaine Screen POSITIVE H (Not Detect) U Marijuana (THC) Screen POSITIVE H (Not Detect) Ethyl Alcohol < 10 mg/dL External Record Review External record reviewed: Inpatient record Social Determinants Patient?s care significantly limited by Social Determinants of Health including: Problems related to primary support group Discharge Plan Discharge Clinical Impression: Schizophrenia Qualifiers: Schizophrenia type: unspecified Qualified Code(s): F20.9 - Schizophrenia, unspecified Patient Disposition: Admitted As Inpatient Discharge Date/Time: 03/14/25 14:52
[2025-03-13 01:06] LABS: MANUAL DIFF FLAG NO
[2025-03-13 01:08] LABS: Basophils Percent Auto 0.4 % (0-2); Eosinophils Absolute Auto 0.1 X10*3/uL (0.0-0.4); Eosinophils Percent Auto 0.8 % (0-4); Hematocrit 39.3 % (42.0-52.0); Imm Gran Abs Auto 0.03 X10*3/uL (0.00-0.03); Imm Gran Pct Auto 0.3 % (0.0-0.4); Lymphocytes Absolute Auto 2.3 X10*3/uL (1.2-4.9); Lymphocytes Percent Auto 22.5 % (20-40); Mean Corpuscular HGB Conc 33.1 g/dl (31.0-36.0); Mean Corpuscular Hemoglobin 27.5 pg (27.0-33.0); Mean Corpuscular Volume 83.3 fL (80.0-98.0); Mean Platelet Volume 10.2 fL (9.4-12.4); Monocytes Absolute Auto 0.9 X10*3/uL (0.1-1.2); Monocytes Percent Auto 8.3 % (2-11); Neutrophils Absolute Auto 6.9 x10*3/uL (2.0-8.3); Neutrophils Percent Auto 67.7 % (45-73); Platelet Count 310 X10*3/uL (160-400); Red Blood Count 4.72 X10*6/uL (4.60-5.80); Red Cell Distribution Width 12.3 % (11.0-16.0); White Blood Count 10.2 X10*3/uL (4.8-10.8)
[2025-03-13 01:18] LABS: Amphetamine Screen Urine Not Detected (Not Detect); Barbiturates, Urine Not Detected (Not Detect); Benzodiazepines Screen Urine Not Detected (Not Detect); Buprenorphine Scr Not Detected (Not Detect); Cannabinoid Screen Urine POSITIVE (Not Detect); Cocaine Screen Urine POSITIVE (Not Detect); Fentanyl, urine Not Detected (Not Detect); Methadone Screen, Urine Not Detected (Not Detect); Opiate Screen Urine Not Detected (Not Detect); Oxycodone Screen Urine Not Detected (Not Detect); Phencyclidine Screen Urine Not Detected (Not Detect)
[2025-03-13 01:33] LABS: Alanine Aminotransferase 75 U/L (0-40); Alkaline Phosphatase 98 U/L (39-117); Anion Gap 15 (12-20); Aspartate Amino Transferase 42 U/L (5-37); Bilirubin Direct 0.2 mg/dL (0.0-0.5); Bilirubin Total 0.6 mg/dL (0.0-1.0); Blood Urea Nitrogen 12 mg/dL (9-16); Calcium 9.9 mg/dL (8.4-10.2); Carbon Dioxide 27 mmol/L (22-29); Chloride 106 mmol/L (96-108); Estimated Glomerular Filt Rate > 60; Ethanol < 10 mg/dL; Glucose Random 82 mg/dL (60-115); Magnesium 2.2 mg/dL (1.6-2.6); Potassium 4.2 mmol/L (3.3-5.1); Sodium 144 mmol/L (135-145); Total Protein 7.7 g/dL (6.5-8.0)
[2025-03-13] MEDS: Mupirocin 2 % Oint 22 GM TUBE 1 APPL TOPICAL ×3 (02:11→21:18)
[2025-03-13 02:40] LABS: Lithium < 0.10 mmol/L (0.60-1.20)
[2025-03-13] MEDS: LORazepam 1 MG TABLET 2 MG PO ×2 (03:21→16:13)
[2025-03-13] MEDS: QUEtiapine Fumarate 50 MG TABLET PO ×2 (03:21→16:13)
--- NOTE | 2025-03-13 07:44 | PC.NURSE ---
Addendum entered by Irene Ferrari RN 03/13/25 07:45: Patient is a 34 yo male with PMH of schizophrenia, PTSD, cocaine use disorder, who comes in with c/o AH/VH. He used cocaine and smoked THC. He is laughing on arrival. ? medication compliance. He has no SI/HI.States he is here to talk to crisis. He denies trauma at this time. Patient resting comfortably. Respirations even and non-labored. Pending Care Team eval. Original Note: Medical History Schizophrenia PTSD (post-traumatic stress disorder) Cocaine use disorder
--- NOTE | 2025-03-13 08:56 | MHC.CARE ---
0800 - Attempted to wake pt for assessment. Pt would not awaken.
--- NOTE | 2025-03-13 09:45 | PC.NURSE ---
Care team at the bedside
--- NOTE | 2025-03-13 13:03 | MHC.CARE ---
Pt is now an inpatient bedsearch
[2025-03-13 13:45] LABS: Appearance Urine Clear; Color Urine Yellow; Glucose Urine UA Negative (Negative); Leukocyte Esterase Urine Negative (Negative); Nitrite Urine Negative (Negative); Specific Gravity - Urine <= 1.005 (1.005-1.025); Urine Blood Negative (Negative); Urine Ketones Negative (Negative); Urine Protein Negative (Neg-Trace)
[2025-03-13] MEDS: Acetaminophen 325 MG TABLET 975 MG PO (16:12)
--- NOTE | 2025-03-13 17:45 | PC.NURSE ---
Patient at continuously at the desk, requesting for different items, disrupting other patient care. Attempted to redirect and set boundaries multiple times requiring intervention by security with no effect. Patient refused to follow directions requiring 4 point restraints. Face to face completed by Dr. [place].
[2025-03-13] MEDS: risperiDONE 2 MG TABLET PO (21:18)
[2025-03-13] MEDS: Prazosin HCL 1 MG CAPSULE PO (21:18)
--- NOTE | 2025-03-14 05:45 | MHC.EDTECH ---
Patient refused vitals. RN aware
[2025-03-14] MEDS: QUEtiapine Fumarate 50 MG TABLET PO ×3 (05:46→18:17)
--- NOTE | 2025-03-14 05:47 | PC.NURSE ---
pt endorsing anxiety. PT medicated as per MAR for anxiety. Refusing vitals.
[2025-03-14 07:29] VITALS: RESP 16
--- NOTE | 2025-03-14 08:27 | PHA.MEDREC ---
Pharmacy Consult ? Medication Reconciliation Pharmacy has reviewed the medication reconciliation completed by nursing. Utilized discharge packet from 03/07 to check med rec, as there are no recent claims.
[2025-03-14 09:59] VITALS: BP 117/75; PULSE 71; O2SAT 100
[2025-03-14] MEDS: risperiDONE 2 MG TABLET PO ×2 (10:05→20:15)
[2025-03-14] MEDS: Lithium Carbonate 300 MG TABLET 150 MG PO (10:05)
[2025-03-14] MEDS: Acetaminophen 325 MG TABLET 975 MG PO (11:35)
[2025-03-14] MEDS: LORazepam 1 MG TABLET 2 MG PO (11:35)
--- NOTE | 2025-03-14 11:37 | PC.NURSE ---
Pt pacing in hallway, requesting Ativan and tylenol for LANDRY and anxiety. MD aware, awaiting orders
--- NOTE | 2025-03-14 13:35 | PC.NURSE ---
Report given to Dea MAN, awaiting transport team.
[2025-03-14 14:25] VITALS: BP 126/79; PULSE 102; RESP 14; TEMP 36.8; O2SAT 98
--- NOTE | 2025-03-14 14:45 | HO.PSYADMNOT ---
HPI Date of Service: 03/14/25 Chief Complaint: Crisis Sources of Information: patient interviewed, chart reviewed and crisis/core team assessment reviewed HPI Subjective Notes: [place] Warning and Conditional Voluntary Narrative: Patient is a 34-year-old male with history of schizophrenia, PTSD, and cocaine use disorder who presented to ER due to auditory and visual hallucinations secondary to intermittent medication adherence and substance use. Per crisis report, patient self presented to ER requesting to speak to crisis. He reported auditory and visual hallucinations and was observed laughing to himself. Patient reported being intermittent medication adherence. Patient was recently discharged from [facility] on 03/07/25. Pt has a Jose G's order. Patient lives at supported [facility] environment supported by [facility]. History of multiple inpatient psychiatric hospitalizations. History of marijuana and cocaine use. Utox positive for cannabis and cocaine. Patient has a history of hallucinations and delusions. denies SI/HI/VH/AH. During admission assessment, patient presents alert and oriented x3. Calm and cooperative. Patient reports he came to the ER due to having auditory and visual hallucinations; patient stated, it felt like I was somewhere else. I have should called my dad to take me home. I went to my friend's house and smoked a lot of weed. There might have been cocaine it without my knowing. which is why I was hallucinating . denies AH/VH at this time. Patient reports he has been taking his medications consistently. denies SI/HI. Patient stated, I'm not suicidal. It was a mistake coming here. I didn't know he was putting cocaine in there. I have to avoid certain friends . signed 3 day notice. Past Psychiatric History: Has a [place] order and guardianship. History of multiple inpatient psychiatric hospitalizations. Prescriber: Rajendra Brown -Service [facility]: Consuelo Hardy [phone] Medical Evaluation Reviewed: Yes [facility] Medical History (Updated 03/14/25 @ 16:48 by Marilou Farr NP) Cocaine use disorder PTSD (post-traumatic stress disorder) Schizophrenia Family History: Grandmother: Schizophrenia Social History: Lives alone. Single. No kids. Disability. Substance History: utox positive for marijuana and cocaine. Trauma History: Yes Diagnostics Vital Signs (24Hr): Vital Signs - 24 hr 03/13/25 17:45 03/13/25 18:00 03/13/25 18:15 Temperature Pulse Rate 75 Respiratory Rate 16 13 13 Blood Pressure 126/67 Pulse Oximetry 97 Oxygen Delivery Method Room Air 03/13/25 18:30 03/13/25 21:07 03/13/25 21:18 Temperature 97.8 F Pulse Rate 89 70 Respiratory Rate 18 16 Blood Pressure 152/80 H 136/67 136/67 Pulse Oximetry 100 100 Oxygen Delivery Method Room Air Room Air 03/14/25 07:29 03/14/25 09:59 03/14/25 14:25 Temperature 98.3 F Pulse Rate 71 102 H Respiratory Rate 16 14 Blood Pressure 117/75 126/79 Pulse Oximetry 100 98 Oxygen Delivery Method Room Air BMI result Body Mass Index 20.3 Labs 03/13/25 01:00 03/13/25 01:00 Labs: Laboratory Results - last 48 hr 03/13/25 03/13/25 01:00 01:01 WBC 10.2 RBC 4.72 Hgb 13.0 L Hct 39.3 L MCV 83.3 MCH 27.5 MCHC 33.1 RDW 12.3 Plt Count 310 MPV 10.2 Immature Gran % (Auto) 0.3 Neut % (Auto) 67.7 Lymph % (Auto) 22.5 [place] % (Auto) 8.3 Eos % (Auto) 0.8 Baso % (Auto) 0.4 Lymph # (Auto) 2.3 [place] # (Auto) 0.9 Eos # (Auto) 0.1 Baso # (Auto) 0.0 Abs Immat Gran (auto) 0.03 Absolute Neuts (auto) 6.9 Absolute Nucleated RBC 0.000 Nucleated RBC % (auto) 0.0 Sodium 144 Potassium 4.2 Chloride 106 Carbon Dioxide 27 Anion Gap 15 BUN 12 Creatinine 1.01 Estim Creat Clear Calc 101.0 Estimated GFR > 60 Random Glucose 82 Calcium 9.9 Magnesium 2.2 Total Bilirubin 0.6 Direct Bilirubin 0.2 AST 42 H ALT 75 H Alkaline Phosphatase 98 Total Protein 7.7 Albumin 5.0 Urine Color Yellow Urine Appearance Clear Urine pH 7.0 Ur Specific [place] <= 1.005 Urine Protein Negative Urine Glucose (UA) Negative Urine Ketones Negative Urine Blood Negative Urine Nitrite Negative Ur Leukocyte Esterase Negative Urine Opiates Screen Not Detected Ur Buprenorphine Scrn Not Detected Ur Oxycodone Screen Not Detected Urine Methadone Screen Not Detected Urine Fentanyl Screen Not Detected Ur Barbiturates Screen Not Detected Ur Phencyclidine Scrn Not Detected Ur Amphetamines Screen Not Detected U Benzodiazepines Scrn Not Detected [place] < 0.10 L Urine Cocaine Screen POSITIVE H U Marijuana (THC) Screen POSITIVE H Ethyl Alcohol < 10 Meds/Allergies Meds Home Medications ?Medication ?Instructions ?Recorded ?Confirmed ?Type lithium carbonate 150 mg capsule 150 mg PO DAILY 03/13/25 03/13/25 History prazosin 1 mg capsule 1 mg PO BEDTIME 03/13/25 03/13/25 History quetiapine 50 mg tablet 50 mg PO TID PRN Anxiety 03/13/25 03/13/25 History risperidone 2 mg tablet 2 mg PO BID 03/13/25 03/13/25 History Allergies Allergies Allergy/AdvReac Type Severity Reaction Status Date / Time benztropine [From Cogentin] Allergy Anaphylaxis Verified 03/13/25 00:45 valproic acid Allergy Anaphylaxis Verified 03/13/25 00:45 Mental Status Exam Mental Status Exam Narrative: Pt is alert and oriented; behavior is cooperative and calm; dressed in casual attire; mood is described as okay ; eye contact appropriate; Speech is normal rate, volume and not pressured; thought process is organized; Thought content is on tx; otherwise pertinent to relevant topics and without any delusional content, paranoid ideations or grandiosity; denies SI/HI/VH/AH. Assessment & Plan Assessment & Plan (1) Schizophrenia: Status: Acute Qualifiers: Schizophrenia type: unspecified Qualified Code(s): F20.9 - Schizophrenia, unspecified Code(s): F20.9 - Schizophrenia, unspecified (2) PTSD (post-traumatic stress disorder): Status: Acute Code(s): F43.10 - Post-traumatic stress disorder, unspecified (3) Cocaine use disorder: Status: Acute Code(s): F14.10 - Cocaine abuse, uncomplicated (4) Cannabis abuse: Status: Acute Code(s): F12.10 - Cannabis abuse, uncomplicated Plan Patient is a 34-year-old male with history of schizophrenia, PTSD, and cocaine use disorder who presented to ER due to auditory and visual hallucinations secondary to intermittent medication adherence and substance use. Plan: CV signed 3 day notice 15 minute safety checks continue home medications obtain collateral encourage groups discharge planning Patient educated on: diagnosis, medication risk/benefits and substance abuse Reason for continued inpatient stay Substantial Risk for: med/psych decompensation Statement Statement: I have reviewed the history and physical and performed a pertinent examination on my patient. No changes have occurred unless specified. If the History and Physical was not performed prior to admission, the Hospitalist's service will be consulted for completing the admission physical. Time Spent With Patient Time: Total time managing care of this patient today _60___ minutes.
--- NOTE | 2025-03-14 17:48 | PC.ADMIT ---
Ren is a 34-year-old male admitted from [facility] Pod to M3 on a CV for treatment of unspecified schizophrenia, PTSD, cocaine abuse. Pt signed a 3-day which us up on Monday 03/19. Tox screen positive for THC and cocaine. Reedy level < 0.10. Pt adamantly denies cocaine use and stated ?the drug dealer must have laced the weed with cocaine because I don?t use cocaine anymore.? Pt also denies hx of trauma or PTSD. While pt was in the Pod, pt was unable to be redirected from frequently approaching RN station and required 4-point restraints and PO Ativan. While completing safety tool, pt denied ever being restrained. Upon arrival to M3, pt was alert and oriented, pleasant and cooperative. Skin check performed and unremarkable. During admission assessment, pt appeared sedated and would frequently close his eyes while answering questions. Speech was slow and difficult to understand. Thought process was linear and organized. Affect was constricted. Pt reported he self-presented to the ED after experiencing an increase in VH and AH of ?crickets and voices.? On M3, pt denied AH/VH/SI/HI. Pt denied appetite or sleep disturbances. Pt denied medical issues. Pt declined to sign ROIs. Pt placed on 15 minute safety checks.
[2025-03-14] MEDS: hydrOXYzine HCL 25 MG TABLET PO (18:17)
[2025-03-14 19:52] VITALS: BP 140/83; PULSE 100; RESP 18; TEMP 36.9; O2SAT 100
[2025-03-14] MEDS: Prazosin HCL 1 MG CAPSULE PO (20:14)
[2025-03-14] MEDS: Acetaminophen 325 MG TABLET 650 MG PO (20:15)
[2025-03-14] MEDS: traZODone HCL 50 MG TABLET PO (20:15)
[2025-03-15 07:00] VITALS: BMI 21.5
[2025-03-15] MEDS: Acetaminophen 325 MG TABLET 650 MG PO ×2 (07:28→16:38)
[2025-03-15] MEDS: QUEtiapine Fumarate 50 MG TABLET PO ×3 (07:28→16:38)
[2025-03-15 08:00] VITALS: BP 132/61; PULSE 90; TEMP 36.4; O2SAT 99
[2025-03-15 08:08] LABS: Alanine Aminotransferase 52 U/L (0-40); Albumin Level 4.6 g/dL (3.5-5.0); Alkaline Phosphatase 84 U/L (39-117); Anion Gap 11 (12-20); Aspartate Amino Transferase 26 U/L (5-37); Bilirubin Total 0.3 mg/dL (0.0-1.0); Blood Urea Nitrogen 20 mg/dL (9-16); Calcium 9.8 mg/dL (8.4-10.2); Carbon Dioxide 28 mmol/L (22-29); Chloride 105 mmol/L (96-108); Cholesterol 177 mg/dL (<200); Estimated Glomerular Filt Rate > 60; Glucose Random 92 mg/dL (60-115); HDL Cholesterol 67 mg/dL (>40); LDL Cholesterol Calculated 87 mg/dL (<100); Potassium 4.5 mmol/L (3.3-5.1); Sodium 139 mmol/L (135-145); Total Protein 7.7 g/dL (6.5-8.0); Triglycerides 115 mg/dL (<150)
[2025-03-15 08:13] LABS: Estimated Average Glucose 105 mg/dL; Hemoglobin A1C 126.3014 umol/L; Hemoglobin A1c % 5.3 % (<6.0); Total Hemoglobin (HGBA1C) 3673.2592 umol/L
[2025-03-15] MEDS: Lithium Carbonate 300 MG TABLET 150 MG PO (09:06)
[2025-03-15] MEDS: risperiDONE 2 MG TABLET PO ×2 (09:06→20:24)
[2025-03-15] MEDS: hydrOXYzine HCL 25 MG TABLET PO ×2 (09:15→16:38)
[2025-03-15] MEDS: Nicotine Polacrilex 2 MG GUM 4 MG BUCCAL (09:37)
--- NOTE | 2025-03-15 12:53 | P.PNPSI_ITS ---
Subjective Subjective Date of Service: 03/15/25 Reason For Visit: Crisis Subjective Notes: 3 Day Interim History: Active on unit. medication compliant. Patient reports feeling okay today; pt stated, I feel like the medications are helping with my mood and temper . showered. denies SI/HI/VH/AH. He reports sleeping well. 3 day up on 03/19/25. Continue current tx plan. Medication Compliance: Yes Side effects from medications: No Attending Groups: Intermittent Mental Status Exam Mental Status Exam Narrative: Pt is alert and oriented; behavior is cooperative and calm; dressed in casual attire; mood is described as okay ; eye contact appropriate; Speech is normal rate, volume and not pressured; thought process is organized; Thought content is on tx; denies SI/HI/VH/AH. Diagnostics Vital Signs (24Hr): Vital Signs - 24 hr 03/14/25 14:25 03/14/25 19:52 03/15/25 08:00 Temperature 98.3 F 98.4 F 97.5 F Pulse Rate 102 H 100 90 Respiratory Rate 14 18 Blood Pressure 126/79 140/83 H 132/61 Pulse Oximetry 98 100 99 Oxygen Delivery Method Room Air Room Air Room Air BMI result Body Mass Index 21.5 Labs 03/13/25 01:00 03/15/25 07:37 Labs: Laboratory Results - last 48 hr 03/13/25 03/15/25 01:01 07:37 Sodium 139 Potassium 4.5 Chloride 105 Carbon Dioxide 28 Anion Gap 11 L BUN 20 H Creatinine 1.03 Estim Creat Clear Calc 99.0 Estimated GFR > 60 Random Glucose 92 Estimat Average Glucose 105 Hemoglobin A1c % 5.3 Calcium 9.8 Total Bilirubin 0.3 AST 26 ALT 52 H Alkaline Phosphatase 84 Total Protein 7.7 Albumin 4.6 Triglycerides 115 Cholesterol 177 LDL Cholesterol, Calc 87 HDL Cholesterol 67 Urine Color Yellow Urine Appearance Clear Urine pH 7.0 Ur Specific [place] <= 1.005 Urine Protein Negative Urine Glucose (UA) Negative Urine Ketones Negative Urine Blood Negative Urine Nitrite Negative Ur Leukocyte Esterase Negative Medications Medications Current Medications Acetaminophen (Acetaminophen 325 Mg Tablet) 650 mg PO Q6H PRN PRN Reason: Headache/Pain, Scale 1-10 Last Admin: 03/15/25 07:28 Dose: 650 mg Al Hydroxide/Mg Hydroxide (Magnesium Hydrox/Alum Hydrox 30 Ml Oral.Susp) 30 ml PO Q6H PRN PRN Reason: Heartburn/Nausea Hydroxyzine HCl (Hydroxyzine Hcl 25 Mg Tablet) 25 mg PO Q6H PRN PRN Reason: mild anxiety Last Admin: 03/15/25 09:15 Dose: 25 mg [place] Carbonate ([place] Carbonate 300 Mg Tablet) 150 mg PO DAILY MARIBEL Last Admin: 03/15/25 09:06 Dose: 150 mg Magnesium Hydroxide (Milk Of Magnesia 30 Ml Oral.Susp) 30 ml PO DAILY PRN PRN Reason: Constipation Mupirocin (Mupirocin 2 % Oint 22 Gm Tube) 1 appl TOPICAL BID MARIBEL; Protocol Stop: 03/20/25 00:49 Last Admin: 03/15/25 09:32 Dose: Not Given Nicotine Polacrilex (Nicotine Polacrilex 2 Mg Gum) 4 mg BUCCAL Q2H PRN PRN Reason: Nicotine Cravings Last Admin: 03/15/25 09:37 Dose: 4 mg Prazosin HCl (Prazosin Hcl 1 Mg Capsule) 1 mg PO BEDTIME MARIBEL; Protocol Last Admin: 03/14/25 20:14 Dose: 1 mg Quetiapine Fumarate (Quetiapine Fumarate 50 Mg Tablet) 50 mg PO TID PRN PRN Reason: Anxiety Last Admin: 03/15/25 12:35 Dose: 50 mg Risperidone (Risperidone 2 Mg Tablet) 2 mg PO BID MARIBEL Last Admin: 03/15/25 09:06 Dose: 2 mg Trazodone HCl (Trazodone Hcl 50 Mg Tablet) 50 mg PO BEDTIME MRX1 PRN PRN Reason: Insomnia Last Admin: 03/14/25 20:15 Dose: 50 mg Allergies Allergies Allergy/AdvReac Type Severity Reaction Status Date / Time benztropine [From Cogentin] Allergy Anaphylaxis Verified 03/13/25 00:45 valproic acid Allergy Anaphylaxis Verified 03/13/25 00:45 Assessment & Plan Assessment & Plan (1) Schizophrenia: Qualifiers: Schizophrenia type: unspecified Qualified Code(s): F20.9 - Schizophrenia, unspecified Status: Acute Code(s): F20.9 - Schizophrenia, unspecified (2) PTSD (post-traumatic stress disorder): Status: Acute Code(s): F43.10 - Post-traumatic stress disorder, unspecified (3) Cocaine use disorder: Status: Acute Code(s): F14.10 - Cocaine abuse, uncomplicated (4) Cannabis abuse: Status: Acute Code(s): F12.10 - Cannabis abuse, uncomplicated Plan Patient is a 34-year-old male with history of schizophrenia, PTSD, and cocaine use disorder who presented to ER due to auditory and visual hallucinations secondary to intermittent medication adherence and substance use. Plan: CV signed 3 day notice 15 minute safety checks continue home medications obtain collateral encourage groups discharge planning 03/15: Active on unit. medication compliant. Patient reports feeling okay today; pt stated, I feel like the medications are helping with my mood and temper . showered. denies SI/HI/VH/AH. He reports sleeping well. 3 day up on 03/19/25. Continue current tx plan. Patient educated on: diagnosis, medication risk/benefits and therapeutic strategies Reason for continued inpatient stay Substantial Risk for: med/psych decompensation Time Spent With Patient Time: Total time managing care of this patient today _20___ minutes.
[2025-03-15 20:15] VITALS: BP 127/83; PULSE 102; RESP 16; TEMP 36.6; O2SAT 98
[2025-03-15 20:24] VITALS: BP 127/83
[2025-03-15] MEDS: traZODone HCL 50 MG TABLET PO (20:24)
[2025-03-15] MEDS: Prazosin HCL 1 MG CAPSULE PO (20:24)
[2025-03-16 07:05] VITALS: BP 115/74; PULSE 82; RESP 16; TEMP 36.9; O2SAT 98
[2025-03-16] MEDS: Lithium Carbonate 300 MG TABLET 150 MG PO (08:40)
[2025-03-16] MEDS: risperiDONE 2 MG TABLET PO ×2 (08:40→20:27)
[2025-03-16] MEDS: QUEtiapine Fumarate 50 MG TABLET PO ×3 (08:44→17:48)
[2025-03-16] MEDS: Acetaminophen 325 MG TABLET 650 MG PO ×2 (08:45→15:32)
--- NOTE | 2025-03-16 09:21 | HO.PSYCHPN ---
Subjective Subjective Date of Service: 03/16/25 Reason For Visit: Crisis Subjective Notes: 3 Day Interim History: Patient continues to report doing well; he reports some anxiety. Pt reports he had an argument with his mother yesterday when she visited; pt stated, she won't let things go. I do my best to make it easier so she doesn't cause problems . denies SI/HI/VH/AH. 3 day up on 03/19/25. Continue current tx plan. Medication Compliance: Yes Side effects from medications: No Mental Status Exam Mental Status Exam Narrative: Pt is alert and oriented; behavior is cooperative and calm; dressed in casual attire; mood is described as a little anxiety ; eye contact appropriate; Speech is normal rate, volume and not pressured; thought process is organized; Thought content is on tx; denies SI/HI/VH/AH. Diagnostics Vital Signs (24Hr): Vital Signs - 24 hr 03/15/25 20:15 03/15/25 20:24 03/16/25 07:05 Temperature 97.8 F 98.4 F Pulse Rate 102 H 82 Respiratory Rate 16 16 Blood Pressure 127/83 127/83 115/74 Pulse Oximetry 98 98 Oxygen Delivery Method Room Air Room Air BMI result Body Mass Index 21.5 Labs 03/13/25 01:00 03/15/25 07:37 Labs: Laboratory Results - last 48 hr 03/15/25 07:37 Sodium 139 Potassium 4.5 Chloride 105 Carbon Dioxide 28 Anion Gap 11 L BUN 20 H Creatinine 1.03 Estim Creat Clear Calc 99.0 Estimated GFR > 60 Random Glucose 92 Estimat Average Glucose 105 Hemoglobin A1c % 5.3 Calcium 9.8 Total Bilirubin 0.3 AST 26 ALT 52 H Alkaline Phosphatase 84 Total Protein 7.7 Albumin 4.6 Triglycerides 115 Cholesterol 177 LDL Cholesterol, Calc 87 HDL Cholesterol 67 Medications Medications Current Medications Acetaminophen (Acetaminophen 325 Mg Tablet) 650 mg PO Q6H PRN PRN Reason: Headache/Pain, Scale 1-10 Last Admin: 03/16/25 08:45 Dose: 650 mg Al Hydroxide/Mg Hydroxide (Magnesium Hydrox/Alum Hydrox 30 Ml Oral.Susp) 30 ml PO Q6H PRN PRN Reason: Heartburn/Nausea Hydroxyzine HCl (Hydroxyzine Hcl 25 Mg Tablet) 25 mg PO Q6H PRN PRN Reason: mild anxiety Last Admin: 03/15/25 16:38 Dose: 25 mg [place] Carbonate ([place] Carbonate 300 Mg Tablet) 150 mg PO DAILY MARIBEL Last Admin: 03/16/25 08:40 Dose: 150 mg Magnesium Hydroxide (Milk Of Magnesia 30 Ml Oral.Susp) 30 ml PO DAILY PRN PRN Reason: Constipation Mupirocin (Mupirocin 2 % Oint 22 Gm Tube) 1 appl TOPICAL BID MARIBEL; Protocol Stop: 03/20/25 00:49 Last Admin: 03/15/25 20:26 Dose: Not Given Nicotine Polacrilex (Nicotine Polacrilex 2 Mg Gum) 4 mg BUCCAL Q2H PRN PRN Reason: Nicotine Cravings Last Admin: 03/15/25 09:37 Dose: 4 mg Prazosin HCl (Prazosin Hcl 1 Mg Capsule) 1 mg PO BEDTIME MARIBEL; Protocol Last Admin: 03/15/25 20:24 Dose: 1 mg Quetiapine Fumarate (Quetiapine Fumarate 50 Mg Tablet) 50 mg PO TID PRN PRN Reason: Anxiety Last Admin: 03/16/25 08:44 Dose: 50 mg Risperidone (Risperidone 2 Mg Tablet) 2 mg PO BID MARIBEL Last Admin: 03/16/25 08:40 Dose: 2 mg Trazodone HCl (Trazodone Hcl 50 Mg Tablet) 50 mg PO BEDTIME MRX1 PRN PRN Reason: Insomnia Last Admin: 03/15/25 20:24 Dose: 50 mg Allergies Allergies Allergy/AdvReac Type Severity Reaction Status Date / Time benztropine [From Cogentin] Allergy Anaphylaxis Verified 03/13/25 00:45 valproic acid Allergy Anaphylaxis Verified 03/13/25 00:45 Assessment & Plan Assessment & Plan (1) Schizophrenia: Qualifiers: Schizophrenia type: unspecified Qualified Code(s): F20.9 - Schizophrenia, unspecified Status: Acute Code(s): F20.9 - Schizophrenia, unspecified (2) PTSD (post-traumatic stress disorder): Status: Acute Code(s): F43.10 - Post-traumatic stress disorder, unspecified (3) Cocaine use disorder: Status: Acute Code(s): F14.10 - Cocaine abuse, uncomplicated (4) Cannabis abuse: Status: Acute Code(s): F12.10 - Cannabis abuse, uncomplicated Plan Patient is a 34-year-old male with history of schizophrenia, PTSD, and cocaine use disorder who presented to ER due to auditory and visual hallucinations secondary to intermittent medication adherence and substance use. Plan: CV signed 3 day notice 15 minute safety checks continue home medications obtain collateral encourage groups discharge planning 03/15: Active on unit. medication compliant. Patient reports feeling okay today; pt stated, I feel like the medications are helping with my mood and temper . showered. denies SI/HI/VH/AH. He reports sleeping well. 3 day up on 03/19/25. Continue current tx plan. 03/16: Patient continues to report doing well; he reports some anxiety. Pt reports he had an argument with his mother yesterday when she visited; pt stated, she won't let things go. I do my best to make it easier so she doesn't cause problems . denies SI/HI/VH/AH. 3 day up on 03/19/25. Continue current tx plan. Patient educated on: diagnosis, medication risk/benefits and therapeutic strategies Reason for continued inpatient stay Substantial Risk for: med/psych decompensation Time Spent With Patient Time: Total time managing care of this patient today _20___ minutes.
[2025-03-16] MEDS: hydrOXYzine HCL 25 MG TABLET PO ×2 (10:29→16:27)
[2025-03-16] MEDS: Nicotine Polacrilex 2 MG GUM 4 MG BUCCAL ×2 (10:29→16:26)
[2025-03-16 20:00] VITALS: BP 126/63; PULSE 100; RESP 16; TEMP 37.4; O2SAT 97
[2025-03-16] MEDS: traZODone HCL 50 MG TABLET PO (20:27)
[2025-03-16] MEDS: Prazosin HCL 1 MG CAPSULE PO (20:27)
[2025-03-17 07:45] VITALS: BP 111/60; PULSE 78; RESP 16; TEMP 36.7; O2SAT 96
--- NOTE | 2025-03-17 08:11 | P.PNPSI_ITS ---
Subjective Subjective Date of Service: 03/17/25 Reason For Visit: Crisis Subjective Notes: 3 Day Healthcare Proxy: No Guardianship: No Medical Problems Affecting Mental Status: No Interim History: 34 yo requesting inc seroquel and anything else that would help mood irritability though didn't want inc lithium - says had in past and didn't help and caused s/e at higher doses- inc seroquel for 50mg tid to 75mg tid and discussed trial oxcarbazipine- though won't have long to try lower dose before dc and [facility] need [facility] with him- \ nursing report slept 6 hrs and nursing reports anxious with blood boiling feeling Medication Compliance: Yes Side effects from medications: No Attending Groups: Intermittent Review of Systems Acute medical concerns: No Medical Review of Systems: unchanged Mental Status Exam Mental Status Exam Narrative: wearing blanket over his head Patient Appearance: Appropriate (otherwise) Patient Orientation: Person, Place and Situation Level of Consciousness: Awake and Alert Patient Behavior: Guarded and Poor Eye Contact Mood Description: Anxious and Apprehensive Affect Description: Blunted Patient Cognition Impaired: No Ability to Follow Directions: Fair Speech Pattern: Clear Hallucinations: None Delusions: Paranoid Ideation (?) Thought Process: Intact and Goal Oriented Depressive Symptoms: Increased Anxiety and Increased Irritability Abnormal Motor Activity Signs and Symptoms: Restlessness Judgement: Fair Diagnostics Vital Signs (24Hr): Vital Signs - 24 hr 03/16/25 20:00 Temperature 99.3 F Pulse Rate 100 Respiratory Rate 16 Blood Pressure 126/63 Pulse Oximetry 97 Oxygen Delivery Method Room Air BMI result Body Mass Index 21.5 Labs 03/13/25 01:00 03/15/25 07:37 Labs: Laboratory Results - last 48 hr 03/15/25 07:37 Estimat Average Glucose 105 Hemoglobin A1c % 5.3 Medications Medications Current Medications Acetaminophen (Acetaminophen 325 Mg Tablet) 650 mg PO Q6H PRN PRN Reason: Headache/Pain, Scale 1-10 Last Admin: 03/16/25 15:32 Dose: 650 mg Al Hydroxide/Mg Hydroxide (Magnesium Hydrox/Alum Hydrox 30 Ml Oral.Susp) 30 ml PO Q6H PRN PRN Reason: Heartburn/Nausea Hydroxyzine HCl (Hydroxyzine Hcl 25 Mg Tablet) 25 mg PO Q6H PRN PRN Reason: mild anxiety Last Admin: 03/16/25 16:27 Dose: 25 mg [place] Carbonate ([place] Carbonate 300 Mg Tablet) 150 mg PO DAILY MARIBEL Last Admin: 03/16/25 08:40 Dose: 150 mg Magnesium Hydroxide (Milk Of Magnesia 30 Ml Oral.Susp) 30 ml PO DAILY PRN PRN Reason: Constipation Mupirocin (Mupirocin 2 % Oint 22 Gm Tube) 1 appl TOPICAL BID MARIBEL; Protocol Stop: 03/20/25 00:49 Last Admin: 03/16/25 20:32 Dose: Not Given Nicotine Polacrilex (Nicotine Polacrilex 2 Mg Gum) 4 mg BUCCAL Q2H PRN PRN Reason: Nicotine Cravings Last Admin: 03/16/25 16:26 Dose: 4 mg Prazosin HCl (Prazosin Hcl 1 Mg Capsule) 1 mg PO BEDTIME MARIBEL; Protocol Last Admin: 03/16/25 20:27 Dose: 1 mg Quetiapine Fumarate (Quetiapine Fumarate 50 Mg Tablet) 50 mg PO TID PRN PRN Reason: Anxiety Last Admin: 03/16/25 17:48 Dose: 50 mg Risperidone (Risperidone 2 Mg Tablet) 2 mg PO BID MARIBEL Last Admin: 03/16/25 20:27 Dose: 2 mg Trazodone HCl (Trazodone Hcl 50 Mg Tablet) 50 mg PO BEDTIME MRX1 PRN PRN Reason: Insomnia Last Admin: 03/16/25 20:27 Dose: 50 mg Allergies Allergies Allergy/AdvReac Type Severity Reaction Status Date / Time benztropine [From Cogentin] Allergy Anaphylaxis Verified 03/13/25 00:45 valproic acid Allergy Anaphylaxis Verified 03/13/25 00:45 Assessment & Plan Assessment & Plan (1) Schizophrenia: Qualifiers: Schizophrenia type: unspecified Qualified Code(s): F20.9 - Schizophrenia, unspecified Status: Acute Code(s): F20.9 - Schizophrenia, unspecified (2) PTSD (post-traumatic stress disorder): Status: Acute Code(s): F43.10 - Post-traumatic stress disorder, unspecified (3) Cocaine use disorder: Status: Acute Code(s): F14.10 - Cocaine abuse, uncomplicated (4) Cannabis abuse: Status: Acute Code(s): F12.10 - Cannabis abuse, uncomplicated Plan Patient is a 34-year-old male with history of schizophrenia, PTSD, and cocaine use disorder who presented to ER due to auditory and visual hallucinations secondary to intermittent medication adherence and substance use. Plan: CV signed 3 day notice 15 minute safety checks continue home medications obtain collateral encourage groups discharge planning 03/15: Active on unit. medication compliant. Patient reports feeling okay today; pt stated, I feel like the medications are helping with my mood and temper . showered. denies SI/HI/VH/AH. He reports sleeping well. 3 day up on 03/19/25. Continue current tx plan. 03/16: Patient continues to report doing well; he reports some anxiety. Pt reports he had an argument with his mother yesterday when she visited; pt stated, she won't let things go. I do my best to make it easier so she doesn't cause problems . denies SI/HI/VH/AH. 3 day up on 03/19/25. Continue current tx plan. 03/17/25- inc seroquel 75mg tid, trial oxcarbazipine discussed for mood stabilization- warned of risk of hyponatremia/confusion Guardian/Caregiver educated on: medication risk/benefits Informed Consent: understands and further education needed Reason for continued inpatient stay Substantial Risk for: rapid decompensation Time Spent With Patient Time: Total time managing care of this patient today ____ minutes.
[2025-03-17] MEDS: Lithium Carbonate 300 MG TABLET 150 MG PO (08:33)
[2025-03-17] MEDS: Acetaminophen 325 MG TABLET 650 MG PO ×2 (08:34→15:02)
[2025-03-17] MEDS: risperiDONE 2 MG TABLET PO ×2 (08:34→20:14)
[2025-03-17] MEDS: QUEtiapine Fumarate 50 MG TABLET PO (08:34)
[2025-03-17] MEDS: hydrOXYzine HCL 25 MG TABLET PO (10:43)
[2025-03-17] MEDS: QUEtiapine Fumarate 25 MG TABLET 75 MG PO ×2 (12:46→20:14)
[2025-03-17 20:00] VITALS: BP 128/55; PULSE 70; RESP 14; TEMP 36.6; O2SAT 99
[2025-03-17] MEDS: Prazosin HCL 1 MG CAPSULE PO (20:13)
[2025-03-17] MEDS: OXcarbazepine 150 MG TABLET PO (20:13)
[2025-03-17] MEDS: traZODone HCL 50 MG TABLET PO (20:14)
[2025-03-18 08:00] VITALS: BP 121/63; PULSE 65; RESP 16; TEMP 36.5; O2SAT 99
[2025-03-18] MEDS: risperiDONE 2 MG TABLET PO ×2 (08:58→20:18)
[2025-03-18] MEDS: Lithium Carbonate 300 MG TABLET 150 MG PO (08:58)
[2025-03-18] MEDS: QUEtiapine Fumarate 25 MG TABLET 75 MG PO ×2 (08:59→14:16)
[2025-03-18] MEDS: OXcarbazepine 150 MG TABLET PO (08:59)
--- NOTE | 2025-03-18 11:17 | P.PNPSI_ITS ---
Subjective Subjective Date of Service: 03/18/25 Reason For Visit: Crisis Subjective Notes: 3 Day Healthcare Proxy: No Guardianship: No (?sheehan) Medical Problems Affecting Mental Status: No Interim History: 34 yo continues guarded and paranoid by nursing report- he says he is doing ok - and inc seroquel some help but inc appetite- happens all the time for him= tolerated start of trileptal and refused further inc lithium- denies further blood boiling or thoughts of hurting others or himself - no AH now Medication Compliance: Yes Side effects from medications: Yes (inc apt needs double portions ) Attending Groups: Intermittent Review of Systems Acute medical concerns: No Medical Review of Systems: changed (inc apt?) Mental Status Exam Mental Status Exam Narrative: still walking owens with blanket over his head like a head covering- Patient Appearance: Inappropriate (odd) Patient Orientation: Person, Place and Situation Level of Consciousness: Awake and Alert Patient Behavior: Cooperative and Poor Eye Contact Mood Description: Apprehensive Affect Description: Blunted Patient Cognition Impaired: No Ability to Follow Directions: Fair Speech Pattern: Clear Hallucinations: None Thought Process: Intact and Goal Oriented Thought Content: positive for [place] Abnormal Motor Activity Signs and Symptoms: Restlessness Judgement: Fair Diagnostics Vital Signs (24Hr): Vital Signs - 24 hr 03/17/25 20:00 03/18/25 08:00 Temperature 97.8 F 97.7 F Pulse Rate 70 65 Respiratory Rate 14 16 Blood Pressure 128/55 L 121/63 Pulse Oximetry 99 99 Oxygen Delivery Method Room Air Room Air BMI result Body Mass Index 21.5 Labs 03/13/25 01:00 03/15/25 07:37 Medications Medications Current Medications Acetaminophen (Acetaminophen 325 Mg Tablet) 650 mg PO Q6H PRN PRN Reason: Headache/Pain, Scale 1-10 Last Admin: 03/17/25 15:02 Dose: 650 mg [place] Hydroxide/Mg Hydroxide (Magnesium Hydrox/Alum Hydrox 30 Ml Oral.Susp) 30 ml PO Q6H PRN PRN Reason: Heartburn/Nausea Hydroxyzine HCl (Hydroxyzine Hcl 25 Mg Tablet) 25 mg PO Q6H PRN PRN Reason: mild anxiety Last Admin: 03/17/25 10:43 Dose: 25 mg [place] Carbonate ([place] Carbonate 300 Mg Tablet) 150 mg PO DAILY MARIBEL Last Admin: 03/18/25 08:58 Dose: 150 mg [place] Hydroxide (Milk Of Magnesia 30 Ml Oral.Susp) 30 ml PO DAILY PRN PRN Reason: Constipation Nicotine Polacrilex (Nicotine Polacrilex 2 Mg Gum) 4 mg BUCCAL Q2H PRN PRN Reason: Nicotine Cravings Last Admin: 03/16/25 16:26 Dose: 4 mg Oxcarbazepine (Oxcarbazepine 150 Mg Tablet) 150 mg PO BID MARIBEL Last Admin: 03/18/25 08:59 Dose: 150 mg Prazosin HCl (Prazosin Hcl 1 Mg Capsule) 1 mg PO BEDTIME MARIBEL; Protocol Last Admin: 03/17/25 20:13 Dose: 1 mg Quetiapine Fumarate (Quetiapine Fumarate 25 Mg Tablet) 75 mg PO TID PRN PRN Reason: Anxiety Last Admin: 03/18/25 08:59 Dose: 75 mg Risperidone (Risperidone 2 Mg Tablet) 2 mg PO BID MARIBEL Last Admin: 03/18/25 08:58 Dose: 2 mg Trazodone HCl (Trazodone Hcl 50 Mg Tablet) 50 mg PO BEDTIME MRX1 PRN PRN Reason: Insomnia Last Admin: 03/17/25 20:14 Dose: 50 mg Allergies Allergies Allergy/AdvReac Type Severity Reaction Status Date / Time benztropine [From Cogentin] Allergy Anaphylaxis Verified 03/13/25 00:45 valproic acid Allergy Anaphylaxis Verified 03/13/25 00:45 Assessment & Plan Assessment & Plan (1) Schizophrenia: Qualifiers: Schizophrenia type: unspecified Qualified Code(s): F20.9 - Schizophrenia, unspecified Status: Acute Code(s): F20.9 - Schizophrenia, unspecified (2) PTSD (post-traumatic stress disorder): Status: Acute Code(s): F43.10 - Post-traumatic stress disorder, unspecified (3) Cocaine use disorder: Status: Acute Code(s): F14.10 - Cocaine abuse, uncomplicated (4) Cannabis abuse: Status: Acute Code(s): F12.10 - Cannabis abuse, uncomplicated Plan Patient is a 34-year-old male with history of schizophrenia, PTSD, and cocaine use disorder who presented to ER due to auditory and visual hallucinations secondary to intermittent medication adherence and substance use. Plan: CV signed 3 day notice 15 minute safety checks continue home medications obtain collateral encourage groups discharge planning 03/15: Active on unit. medication compliant. Patient reports feeling okay today; pt stated, I feel like the medications are helping with my mood and temper . showered. denies SI/HI/VH/AH. He reports sleeping well. 3 day up on 03/19/25. Continue current tx plan. 03/16: Patient continues to report doing well; he reports some anxiety. Pt reports he had an argument with his mother yesterday when she visited; pt stated, she won't let things go. I do my best to make it easier so she doesn't cause problems . denies SI/HI/VH/AH. 3 day up on 03/19/25. Continue current tx plan. 03/17/25- inc seroquel 75mg tid, trial oxcarbazipine discussed for mood stabilization- warned of risk of hyponatremia/confusion 03/18 no change to medications - CTP , pt looking for dc- Patient educated on: medication risk/benefits and other (dc planning) Informed Consent: further education needed Reason for continued inpatient stay Substantial Risk for: rapid decompensation Time Spent With Patient Time: Total time managing care of this patient today ____ minutes.
[2025-03-18 20:00] VITALS: BP 125/75; PULSE 87; RESP 18; TEMP 36.7; O2SAT 97
[2025-03-18 20:14] VITALS: BP 125/75
[2025-03-18] MEDS: Prazosin HCL 1 MG CAPSULE PO (20:14)
[2025-03-18] MEDS: traZODone HCL 50 MG TABLET PO (20:18)
[2025-03-19 07:47] VITALS: BP 130/72; PULSE 81; RESP 16; TEMP 36.6; O2SAT 98
[2025-03-19 07:52] VITALS: BP 113/57; PULSE 85; RESP 16; TEMP 36.7; O2SAT 99
[2025-03-19] MEDS: Lithium Carbonate 300 MG TABLET 150 MG PO (08:33)
[2025-03-19] MEDS: risperiDONE 2 MG TABLET PO (08:34)
[2025-03-19] MEDS: QUEtiapine Fumarate 25 MG TABLET 75 MG PO (08:34)
--- NOTE | 2025-03-19 09:46 | PM.PSYDC ---
DS: Providers Provider Date of Service: 03/19/25 Date of admission: 03/14/25 12:05 Date of discharge: 03/19/25 Primary care physician: Unknown Physician Admitting clinician: Marilou Farr Attending physician on admission: Mario Lobo Attending physician on discharge: Mario Lobo Discharging clinician: Marilou Farr DS: Diagnosis Discharge Diagnosis (1) Schizophrenia: Status: Acute (2) PTSD (post-traumatic stress disorder): Status: Acute (3) Cocaine use disorder: Status: Acute (4) Cannabis abuse: Status: Acute DS: Medications Discharge Medications Home Medications: Home Medications ?Medication ?Instructions ?Recorded ?Confirmed lithium carbonate 150 mg capsule 150 mg PO DAILY 03/13/25 03/13/25 prazosin 1 mg capsule 1 mg PO BEDTIME 03/13/25 03/13/25 quetiapine 50 mg tablet 50 mg PO TID PRN Anxiety 03/13/25 03/13/25 risperidone 2 mg tablet 2 mg PO BID 03/13/25 03/13/25 Mental Status Exam Mental Status Exam Narrative: Pt is alert and oriented; behavior is cooperative and calm; dressed in casual attire; mood is described as good ; eye contact appropriate; Speech is normal rate, volume and not pressured; thought process is organized; Thought content is on discharge; denies SI/HI/VH/AH. Data Data Completed and Pending Completed studies during hospitalization [Text1]: 03/13/25 03/13/25 03/15/25 01:00 01:01 07:37 WBC 10.2 RBC 4.72 Hgb 13.0 L Hct 39.3 L MCV 83.3 MCH 27.5 MCHC 33.1 RDW 12.3 Plt Count 310 MPV 10.2 Immature Gran % (Auto) 0.3 Neut % (Auto) 67.7 Lymph % (Auto) 22.5 [place] % (Auto) 8.3 Eos % (Auto) 0.8 Baso % (Auto) 0.4 Lymph # (Auto) 2.3 [place] # (Auto) 0.9 Eos # (Auto) 0.1 Baso # (Auto) 0.0 Abs Immat Gran (auto) 0.03 Absolute Neuts (auto) 6.9 Absolute Nucleated RBC 0.000 Nucleated RBC % (auto) 0.0 Sodium 144 139 Potassium 4.2 4.5 Chloride 106 105 Carbon Dioxide 27 28 Anion Gap 15 11 L BUN 12 20 H Creatinine 1.01 1.03 Estim Creat Clear Calc 101.0 99.0 Estimated GFR > 60 > 60 Random Glucose 82 92 Estimat Average Glucose 105 Hemoglobin A1c % 5.3 Calcium 9.9 9.8 Magnesium 2.2 Total Bilirubin 0.6 0.3 Direct Bilirubin 0.2 AST 42 H 26 ALT 75 H 52 H Alkaline Phosphatase 98 84 Total Protein 7.7 7.7 Albumin 5.0 4.6 Triglycerides 115 Cholesterol 177 LDL Cholesterol, Calc 87 HDL Cholesterol 67 Urine Color Yellow Urine Appearance Clear Urine pH 7.0 Ur Specific [place] <= 1.005 Urine Protein Negative Urine Glucose (UA) Negative Urine Ketones Negative Urine Blood Negative Urine Nitrite Negative Ur Leukocyte Esterase Negative Urine Opiates Screen Not Detected Ur Buprenorphine Scrn Not Detected Ur Oxycodone Screen Not Detected Urine Methadone Screen Not Detected Urine Fentanyl Screen Not Detected Ur Barbiturates Screen Not Detected Ur Phencyclidine Scrn Not Detected Ur Amphetamines Screen Not Detected U Benzodiazepines Scrn Not Detected [place] < 0.10 L Urine Cocaine Screen POSITIVE H U Marijuana (THC) Screen POSITIVE H Ethyl Alcohol < 10 DS: Summary Hospital Course Hospital Course: Patient is a 34-year-old male with history of schizophrenia, PTSD, and cocaine use disorder who presented to ER due to auditory and visual hallucinations secondary to intermittent medication adherence and substance use. Per crisis report, patient self presented to ER requesting to speak to crisis. He reported auditory and visual hallucinations and was observed laughing to himself. Patient reported being intermittent medication adherence. Patient was recently discharged from [facility] on 03/07/25. Pt has a Jose G's order. [facility] History of multiple inpatient psychiatric hospitalizations. History of marijuana and cocaine use. Utox positive for cannabis and cocaine. Patient has a history of hallucinations and delusions. denies SI/HI/VH/AH. During admission assessment, patient presents alert and oriented x3. Calm and cooperative. Patient reports he came to the ER due to having auditory and visual hallucinations; patient stated, it felt like I was somewhere else. I have should called my dad to take me home. I went to my friend's house and smoked a lot of weed. There might have been cocaine it without my knowing. which is why I was hallucinating . denies AH/VH at this time. Patient reports he has been taking his medications consistently. denies SI/HI. Patient stated, I'm not suicidal. It was a mistake coming here. I didn't know he was putting cocaine in there. I have to avoid certain friends . signed 3 day notice. Plan: CV signed 3 day notice 15 minute safety checks continue home medications obtain collateral encourage groups discharge planning Active on unit. medication compliant. Patient reports feeling okay today; pt stated, I feel like the medications are helping with my mood and temper . showered. denies SI/HI/VH/AH. He reports sleeping well. 3 day up on 03/19/25. Continue current tx plan. Patient continues to report doing well; he reports some anxiety. Pt reports he had an argument with his mother yesterday when she visited; pt stated, she won't let things go. I do my best to make it easier so she doesn't cause problems . denies SI/HI/VH/AH. 3 day up on 03/19/25. Continue current tx plan. inc seroquel 75mg tid, trial oxcarbazipine discussed for mood stabilization- warned of risk of hyponatremia/confusion no change to medications - CTP , pt looking for dc- Patients 3 day up on 03/19/25. Pt reports feeling good and looking forward to discharge. denies SI/HI/VH/AH. Pt reports he plans on following up with his outpatient providers. Status at Discharge Cognitive/behavioral status at discharge: Patient has insight and demonstrates good judgment in terms of wanting to pursue treatment. Patient has a safety plan that includes presenting to the closest ER or calling 911 if feeling unsafe. Functional status at discharge: independent ambulation Overall status at discharge: patient is back to baseline Time Spent with Patient Time attestation: Total time managing care of this patient today _20___ minutes. Time spent: Less than 30 minutes Discharge Plan Discharge Anticipated Discharge Date/Time: 03/19/25 11:00 Patient Disposition: Home, Self-Care Discharge Diagnosis: Schizophrenia, PTSD, Cocaine use d/o, Cannabis abuse Referrals: [facility] [Provider Group] - 1 Week (03-15-25 [facility] was added to patients chart. Please call [phone] to schedule a follow up appt within 7-10 days of discharge. No release or PCP on file.) Discharge Medications: Continued lithium carbonate 150 mg Capsule 150 mg PO DAILY risperidone 2 mg Tablet 2 mg PO BID prazosin 1 mg Capsule 1 mg PO BEDTIME quetiapine 50 mg Tablet 50 mg PO TID PRN (Reason: Anxiety) Discharge Orders: Discharge Order (Routine); Ordered 03/19/25 Ordered By: Marilou Farr Diet: Regular diet Activity on Discharge: As tolerated Stand Alone Forms: Patient Portal Discharge page, Community Support Print Language: Thai Care Plan Goals: Maintain mood and safe behaviors Take medications as prescribed Continue to pursue sobriety Practice coping skills Continue with outpatient providers and reach out to them as needed Health Concerns: Mood stability and behaviors Sobriety Plan of Treatment: Follow up with your PCP, psychiatric provider and other outpatient providers regarding above concerns Take medications as prescribed Assessment: Patient has insight and demonstrates good judgment in terms of wanting to pursue treatment. Patient has a safety plan that includes presenting to the closest ER or calling 911 if feeling unsafe. Discharge Date/Time: 03/19/25 11:13
[2025-03-19] MEDS: Naloxone HCl Nasal TAKE HOME 4 MG SPRAY 8 MG NOSTRILALT (09:52)
== END 2025-03-19 11:13 | disposition home or self-care (01) | DRG 885 ==
LOC: HO.ED 01:11 → HO.PADLT16 03-14 12:54
PROVIDERS: Emergency Medicine Emergency Medical Services; Admitting Provider Registered Nurse; Emergency Provider Emergency Medicine; Responsible Provider Registered Nurse; Visit Provider Psychiatry & Neurology Psychiatry
DX: F20.9 Schizophrenia, unspecified (principal); F43.10 Post-traumatic stress disorder, unspecified; F14.10 Cocaine abuse, uncomplicated; F12.10 Cannabis abuse, uncomplicated; Z79.899 Other long term (current) drug therapy
CPT/HCPCS: 36415; 80048; 80053; 80061; 80076; 80178; 80307; 81003; 83036; 83735; 85025; 93005; 99285; S9485

== ENCOUNTER → 2025-03-14 12:05 | Outpatient (BNV) | payer MEDICARE, MEDICAID, SELFPAY | PROVIDERS: Admitting Provider Registered Nurse; Emergency Provider Emergency Medicine; Responsible Provider Registered Nurse; Visit Provider Registered Nurse | DX: F20.9 Schizophrenia, unspecified (principal); F43.10 Post-traumatic stress disorder, unspecified; F14.10 Cocaine abuse, uncomplicated; F12.10 Cannabis abuse, uncomplicated | CPT/HCPCS: 90792 ==

== ENCOUNTER 2025-03-22 05:08 | Emergency (ER) | payer MEDICARE, MEDICAID, SELFPAY ==
[2025-03-22 05:09] VITALS: BP 132/69; PULSE 80; RESP 16; TEMP 36.3; O2SAT 97; BMI 21.7
[2025-03-22 05:46] LABS: MANUAL DIFF FLAG NO
[2025-03-22 05:47] LABS: Basophils Percent Auto 0.2 % (0-2); Eosinophils Absolute Auto 0.1 X10*3/uL (0.0-0.4); Eosinophils Percent Auto 0.6 % (0-4); Hematocrit 35.5 % (42.0-52.0); Hemoglobin 12.1 g/dl (14.0-18.0); Imm Gran Abs Auto 0.03 X10*3/uL (0.00-0.03); Imm Gran Pct Auto 0.3 % (0.0-0.4); Lymphocytes Absolute Auto 2.4 X10*3/uL (1.2-4.9); Lymphocytes Percent Auto 23.3 % (20-40); Mean Corpuscular HGB Conc 34.1 g/dl (31.0-36.0); Mean Corpuscular Hemoglobin 27.4 pg (27.0-33.0); Mean Corpuscular Volume 80.3 fL (80.0-98.0); Monocytes Absolute Auto 0.9 X10*3/uL (0.1-1.2); Monocytes Percent Auto 9.1 % (2-11); Neutrophils Absolute Auto 6.8 x10*3/uL (2.0-8.3); Neutrophils Percent Auto 66.5 % (45-73); Platelet Count 309 X10*3/uL (160-400); Red Blood Count 4.42 X10*6/uL (4.60-5.80); Red Cell Distribution Width 12.7 % (11.0-16.0); White Blood Count 10.2 X10*3/uL (4.8-10.8)
[2025-03-22 05:57] LABS: Lithium < 0.10 mmol/L (0.60-1.20)
[2025-03-22 05:58] LABS: Amphetamine Screen Urine Not Detected (Not Detect); Barbiturates, Urine Not Detected (Not Detect); Benzodiazepines Screen Urine Not Detected (Not Detect); Buprenorphine Scr Not Detected (Not Detect); Cannabinoid Screen Urine POSITIVE (Not Detect); Cocaine Screen Urine POSITIVE (Not Detect); Fentanyl, urine Not Detected (Not Detect); Methadone Screen, Urine Not Detected (Not Detect); Opiate Screen Urine Not Detected (Not Detect); Oxycodone Screen Urine Not Detected (Not Detect); Phencyclidine Screen Urine Not Detected (Not Detect)
[2025-03-22 06:03] LABS: Ethanol < 10 mg/dL
[2025-03-22 06:04] LABS: Alanine Aminotransferase 58 U/L (0-40); Albumin Level 4.7 g/dL (3.5-5.0); Alkaline Phosphatase 72 U/L (39-117); Anion Gap 11 (12-20); Aspartate Amino Transferase 46 U/L (5-37); Bilirubin Total 0.8 mg/dL (0.0-1.0); Blood Urea Nitrogen 10 mg/dL (9-16); Calcium 9.5 mg/dL (8.4-10.2); Carbon Dioxide 24 mmol/L (22-29); Chloride 109 mmol/L (96-108); Creatinine Clr Calc Pharmacy 108.8; Estimated Glomerular Filt Rate > 60; Glucose Random 85 mg/dL (60-115); Potassium 3.8 mmol/L (3.3-5.1); Sodium 140 mmol/L (135-145); Total Protein 7.5 g/dL (6.5-8.0)
--- NOTE | 2025-03-22 06:38 | ED.PSYCH ---
HPI - Psych General Chief Complaint: Psychiatric Symptoms Stated Complaint: Hearing voices! Time Seen by Provider: 03/22/25 06:34 Source: patient Mode of arrival: ambulatory Limitations: no limitations History of Present Illness ED Provider: Dr. Emma Redding HPI Narrative: patient comes to the emergency room complaining of hearing voices. Patient states that he has been using drugs. Patient denies SI or HI. Patient was recently discharged from the hospital, 3 days ago for schizophrenia, PTSD, cocaine and THC use disorder Related Data Home Medications ?Medication ?Instructions ?Recorded ?Confirmed lithium carbonate 150 mg capsule 150 mg PO DAILY 03/13/25 03/22/25 prazosin 1 mg capsule 1 mg PO BEDTIME 03/13/25 03/22/25 quetiapine 50 mg tablet 50 mg PO TID PRN Anxiety 03/13/25 03/22/25 risperidone 2 mg tablet 2 mg PO BID 03/13/25 03/22/25 Allergies Allergy/AdvReac Type Severity Reaction Status Date / Time benztropine (From [employer]) Allergy Anaphylaxis Verified 03/22/25 05:11 valproic acid Allergy Anaphylaxis Verified 03/22/25 05:11 Review of Systems Review of Systems: Constitutional : No Weight loss, No Fever, No Chills, No Night Sweats, No Fatigue, No Malaise ENT/Mouth : No Hearing loss, No Ear Pain, No Nasal Congestion, No Sinus Pain, No Hoarseness, No sore throat, No Rhinorrhea, No Swallowing Difficulty Eyes: No Eye Pain, No Swelling, No Redness, No Foreign Body, No Discharge, No Vision Changes Cardiovascular : No Chest Pain, No SOB, No Dyspnea on Exertion, No Orthopnea, No Edema, No Palpitations Respiratory : No Cough, No Sputum, No Wheezing, No Smoke Exposure, No Dyspnea Gastrointestinal : No Nausea, No Vomiting, No Diarrhea, No Constipation, No abdominal Pain, No Hematochezia, No Melena Genitourinary : no irregular bleeding, No Dysuria, No Urinary Frequency, No Hematuria, No Urinary Incontinence, No Urgency, No Flank Pain, No Urinary Flow Changes, No Hesitancy Musculoskeletal : No joint pain, No Myalgias, No Joint Swelling Skin : No Skin Lesions, No rash Neuro : No Weakness, No Numbness, No Paresthesias, No Loss of Consciousness, No Dizziness, No Headache Psych : No Anxiety/Panic, No Depression, No SI/HI/AH/VH, complaining of auditory hallucinations Heme/Lymph: No Bruising, No Bleeding,No Lymphadenopathy Endocrine : No Polyuria, No Polydipsia, No Temperature Intolerance PMFSH Past Medical History Medical History Cocaine use disorder PTSD (post-traumatic stress disorder) Schizophrenia Social History Social History Household Members: Friend(s) Housing: Apartment Housing [facility] Do you presently have visiting nurse or other home services: No Patient Tobacco Use Status: Never used Tobacco Tobacco use type: Cigarette e-Cigarette/Vaping Use: Never Used Second Hand Smoke Exposure: No Advance Directives: No service: No Sexual orientation: Decline to Answer Physical Exam Vital Signs: Vital Signs: Last Vital Signs Temp 97.4 F 03/22/25 05:09 Pulse 80 03/22/25 05:09 Resp 16 03/22/25 05:09 BP 132/69 03/22/25 05:09 Pulse Ox 97 03/22/25 05:09 O2 Del Method Room Air 03/22/25 05:09 BMI result Body Mass Index 21.7 Const: Other: Appearance: Alert. Oriented X3. No acute distress. Eyes: Pupils equal, round and reactive to light. ENT: Pharynx normal. Neck: Normal inspection. Neck supple. No lymph nodes noted. No crepitus CVS: Normal heart rate and rhythm. Pulses normal. Normal S1 and S2 Respiratory: No respiratory distress. Breath sounds normal. No Wheezing. No rales Abdomen: Soft and nontender. No rigidity. No distention. Skin: Skin warm and dry. Normal skin color. Normal skin turgor. Extremities: No lower extremity edema. No Lacerations. No Rash Neuro: Oriented X 3. No motor deficit. No sensory deficit. Moving all extremities. No slurred speech. CN 2 through 12 grossly intact Psych: calm, cooperative, normal affect Course Course Course Narrative: patient comes in complaining of hallucinations after using drugs. denies SI or HI patient was discharged 2 days ago from this hospital, patient was treated for schizophrenia, PTSD, cocaine and cannabis use disorder Reevaluation(s) Reevaluation #1: Time: 08:33 Date: 03/22/25 Provider: Osito Ku MD Patient in physician observation for psychiatric evaluation.? No acute events reported overnight. No current complaints. VS stable.? Patient is in bed search status/pending CARE team evaluation. Will continue to monitor. Reevaluation #2: 03/22/2020 11:17 AM the patient was seen by the crisis team he was cleared for discharge. At this time we will end the ED observation status Time: 11:18 Medical Decision Making Medical Decision Making [facility] Narrative: my interpretation of labs: No significant abnormality in patient's hematology or chemistry. Urine toxicology positive for cocaine and marijuana. Patient's lithium subtherapeutic. Alcohol level negative Care team consult pending patient is not SI or HI, section 12 not indicated Differential Diagnosis Differential Diagnoses: The differential diagnosis associated with the presentation includes ( schizophrenia, polysubstance abuse, anxiety, depression, PTSD) Admission/Observation Consideration of admission/observation: Escalation of care including admission/observation considered ( patient is waiting to be seen by the care team to determine patient's disposition.) Lab Data [facility] Lab Attestation statement: I reviewed the patient's lab results. 03/22/25 05:37 03/22/25 05:37 Labs: Lab Results 03/22/25 03/22/25 Range/Units 05:37 05:38 WBC 10.2 (4.8-10.8) X10*3/uL RBC 4.42 L (4.60-5.80) X10*6/uL Hgb 12.1 L (14.0-18.0) g/dl Hct 35.5 L (42.0-52.0) % MCV 80.3 (80.0-98.0) fL MCH 27.4 (27.0-33.0) pg MCHC 34.1 (31.0-36.0) g/dl RDW 12.7 (11.0-16.0) % Plt Count 309 (160-400) X10*3/uL MPV 10.0 (9.4-12.4) fL Immature Gran % (Auto) 0.3 (0.0-0.4) % Neut % (Auto) 66.5 (45-73) % Lymph % (Auto) 23.3 (20-40) % [place] % (Auto) 9.1 (2-11) % Eos % (Auto) 0.6 (0-4) % Baso % (Auto) 0.2 (0-2) % Lymph # (Auto) 2.4 (1.2-4.9) X10*3/uL [place] # (Auto) 0.9 (0.1-1.2) X10*3/uL Eos # (Auto) 0.1 (0.0-0.4) X10*3/uL Baso # (Auto) 0.0 (0.0-0.2) X10*3/uL Abs Immat Gran (auto) 0.03 (0.00-0.03) X10*3/uL Absolute Neuts (auto) 6.8 (2.0-8.3) x10*3/uL Absolute Nucleated RBC 0.000 (0.0-0.012) X10*3/uL Nucleated RBC % (auto) 0.0 (0.0-0.2) /100WBC Sodium 140 (135-145) mmol/L Potassium 3.8 (3.3-5.1) mmol/L Chloride 109 H (96-108) mmol/L Carbon Dioxide 24 (22-29) mmol/L Anion Gap 11 L (12-20) BUN 10 (9-16) mg/dL Creatinine 1.00 (0.5-1.4) mg/dL Estim Creat Clear Calc 108.8 Estimated GFR > 60 Random Glucose 85 (60-115) mg/dL Calcium 9.5 (8.4-10.2) mg/dL Total Bilirubin 0.8 (0.0-1.0) mg/dL AST 46 H (5-37) U/L ALT 58 H (0-40) U/L Alkaline Phosphatase 72 (39-117) U/L Total Protein 7.5 (6.5-8.0) g/dL Albumin 4.7 (3.5-5.0) g/dL Urine Opiates Screen Not Detected (Not Detect) Ur Buprenorphine Scrn Not Detected (Not Detect) ng/mL Ur Oxycodone Screen Not Detected (Not Detect) ng/mL Urine Methadone Screen Not Detected (Not Detect) ng/mL Urine Fentanyl Screen Not Detected (Not Detect) Ur Barbiturates Screen Not Detected (Not Detect) Ur Phencyclidine Scrn Not Detected (Not Detect) Ur Amphetamines Screen Not Detected (Not Detect) U Benzodiazepines Scrn Not Detected (Not Detect) Kim < 0.10 L (0.60-1.20) mmol/L Urine Cocaine Screen POSITIVE H (Not Detect) U Marijuana (THC) Screen POSITIVE H (Not Detect) Ethyl Alcohol < 10 mg/dL Discharge Plan Discharge Clinical Impression: Cocaine use disorder, Hallucinations Prescriptions: No Action lithium carbonate 150 mg Capsule 150 mg PO DAILY risperidone 2 mg Tablet 2 mg PO BID prazosin 1 mg Capsule 1 mg PO BEDTIME quetiapine 50 mg Tablet 50 mg PO TID PRN (Reason: Anxiety) Interventions: Tillman-Suicide Risk Severity Scale Last Done: 03/22/25 06:30 Print Language: Georgian
[2025-03-22 11:32] VITALS: BP 132/69; PULSE 80; RESP 16; TEMP 36.3; O2SAT 97
== END 2025-03-22 11:39 | disposition home or self-care (01) ==
PROVIDERS: Emergency Provider Emergency Medicine
DX: F14.151 Cocaine abuse with cocaine-induced psychotic disorder with hallucinations (principal); F12.10 Cannabis abuse, uncomplicated; F43.10 Post-traumatic stress disorder, unspecified; Z51.81 Encounter for therapeutic drug level monitoring; Z71.51 Drug abuse counseling and surveillance of drug abuser; Z79.899 Other long term (current) drug therapy
CPT/HCPCS: 36415; 80053; 80178; 80307; 85025; 99284; S9485

== ENCOUNTER 2025-09-04 00:42 | Emergency (ER) | payer MEDICARE, MEDICAID, SELFPAY ==
[2025-09-04 01:01] VITALS: BP 119/50; BP 177/87; PULSE 84; RESP 25; TEMP 33.4; O2SAT 100; O2SAT 98; BMI 20.3
--- NOTE | 2025-09-04 01:10 | ED_ITS ---
HPI - Overdose General Chief Complaint: Overdose Stated Complaint: OD Time Seen by Provider: 09/04/25 01:09 Source: patient and EMS Mode of arrival: EMS Limitations: other History of Present Illness ED Provider: Dr. Emma Redding HPI Narrative: patient comes to the emergency room after an overdose. Patient admits that he has been smoking fentanyl. Patient was found by the police department, given 2 mg of intranasal Narcan. On arrival to the emergency room, patient's rectal temperature is 92.8 degrees Related Data Home Medications ?Medication ?Instructions ?Recorded ?Confirmed lithium carbonate 150 mg capsule 150 mg PO DAILY 03/1303/22/25 prazosin 1 mg capsule 1 mg PO BEDTIME 03/13/25 quetiapine 50 mg tablet 50 mg PO TID PRN Anxiety 07/2803/22/25 risperidone 2 mg tablet 2 mg PO BID 03/13/25 5 Allergies Allergy/AdvReac Type Severity Reaction Status Date / Time benztropine (From [employer]) Allergy Anaphylaxis Verified 09/04/25 01:06 valproic acid Allergy Anaphylaxis Verified 09/04/25 01:06 Review of Systems Review of Systems: Constitutional : No Weight loss, No Fever, No Chills, No Night Sweats, feeling very cold, shivering ENT/Mouth : No Hearing loss, No Ear Pain, No Nasal Congestion, No Sinus Pain, No Hoarseness, No sore throat, No Rhinorrhea, No Swallowing Difficulty Eyes: No Eye Pain, No Swelling, No Redness, No Foreign Body, No Discharge, No Vision Changes Cardiovascular : No Chest Pain, No SOB, No Dyspnea on Exertion, No Orthopnea, No Edema, No Palpitations Respiratory : No Cough, No Sputum, No Wheezing, No Smoke Exposure, No Dyspnea Gastrointestinal : No Nausea, No Vomiting, No Diarrhea, No Constipation, No abdominal Pain, No Hematochezia, No Melena Genitourinary : no irregular bleeding, No Dysuria, No Urinary Frequency, No Hematuria, No Urinary Incontinence, No Urgency, No Flank Pain, No Urinary Flow Changes, No Hesitancy Musculoskeletal : No joint pain, No Myalgias, No Joint Swelling Skin : No Skin Lesions, No rash Neuro : No Weakness, No Numbness, No Paresthesias, No Loss of Consciousness, No Dizziness, No Headache Psych : No Anxiety/Panic, No Depression, No SI/HI/AH/VH, admits to polysubstance abuse Heme/Lymph: No Bruising, No Bleeding,No Lymphadenopathy Endocrine : No Polyuria, No Polydipsia, No Temperature Intolerance PMFSH Past Medical History Medical History Cocaine use disorder PTSD (post-traumatic stress disorder) Schizophrenia Social History Social History Household Members: Friend(s) Housing: Apartment Housing Other:: [facility] Housing Do you presently have visiting nurse or other home services: No Patient Tobacco Use Status: Never used Tobacco Tobacco use type: Cigarette e-Cigarette/Vaping Use: Never Used Second Hand Smoke Exposure: No Advance Directives: No Advance Directives Information Provided: Yes Do you have a plan to hurt others: No Plan service: No Sexual orientation: Decline to Answer Physical Exam Exam: Exam: Appearance: Alert. somnolent but easily arousable, complaining of feeling very cold and shivering, rectal temperature 92.1 degrees Eyes: Pupils equal, round and reactive to light. ENT: Pharynx normal. Neck: Normal inspection. Neck supple. No lymph nodes noted. No crepitus CVS: Normal heart rate and rhythm. Pulses normal. Normal S1 and S2 Respiratory: No respiratory distress. Breath sounds normal. No Wheezing. No rales Abdomen: Soft and nontender. No rigidity. No distention. Skin: Skin warm and dry. Normal skin color. Normal skin turgor. Extremities: No lower extremity edema. No Lacerations. No Rash Neuro: no slurred speech, speaking in full sentences Psych: calm, cooperative, normal affect Vital Signs: Vital Signs: Last Vital Signs Temp 95.4 F L 09/04/25 03:10 Pulse 60 09/04/25 03:10 Resp 14 09/04/25 03:10 BP 111/50 L 09/04/25 03:10 Pulse Ox 95 09/04/25 03:10 O2 Del Method Room Air 09/04/25 03:10 BMI result Body Mass Index 20.3 Course Course Course Narrative: [facility] Medical Decision Making Medical Decision Making MDM Narrative: My interpretation of EKG: Normal sinus rhythm, heart rate 60, no ST segment depression or elevation, no T-wave inversion, no U wave, QTC 456 Patient has not provided a urine sample yet. Patient denies SI or HI. Patient declined addiction medicine/defensive line coach/care team Patient will be provided with home Narcan prior to discharge. Differential Diagnosis Differential Diagnoses: The differential diagnosis associated with the presentation includes (Accidental overdose, polysubstance abuse) Independent Interpretation I performed an independent interpretation of an: EKG Critical Care Time Critical Care Time Critical Care Time: Yes Total Critical Care Time: 60 Attestation: I have personally provided critical care time. Time includes review of lab data, radiology results, discussion with consultants, and monitoring for potential decompensation. Intervention performed as documented. Discharge Plan Discharge Clinical Impression: Drug overdose, Hypothermia due to cold environment Patient Disposition: Home, Self-Care Instructions: Adult Overdose (ED), Acute Hypothermia (ED) Additional Instructions: Overdose You were seen in our Emergency Department for an overdose today. You received narcan in order to reverse the effects of overdose. Narcan only lasts about 45 min to 1 hour in the system. You may have been given narcan to take home with you today, please keep it near you if you are going to use again, so others can use it if needed.? The number one risk for fatal overdose is using alone? [employer] is a / hotline where you can be on the phone with someone while you use, and they can call for help if they suspect an overdose: [phone] Things to look out for when you leave include severe vomiting or diarrhea, headaches, muscle cramps, fever, coughing, chest pain, or if you feel so short of breath you cannot walk to the bathroom. Please seek care and return any time for worsening symptoms.? You may have been provided with safer injection?items, please take time to take care of YOU and your health. Use new supplies whenever possible to lessen the chances of infections and other illnesses.? If you need more supplies, please go [facility] [address], [place] you can call or text to coordinate delivery of safer supplies. If you decide you want to stop or cut down on how much you?re using, please call the numbers on the list provided to you or you can come to our outpatient Addiction Treatment office [facility] (M-F 9am-5p) [address] [place] [address], [address] [place]. [phone] Prescriptions: No Action lithium carbonate 150 mg Capsule 150 mg PO DAILY risperidone 2 mg Tablet 2 mg PO BID prazosin 1 mg Capsule 1 mg PO BEDTIME quetiapine 50 mg Tablet 50 mg PO TID PRN (Reason: Anxiety) Print Language: Macanese
--- NOTE | 2025-09-04 01:14 | PC.NURSE ---
PT JEMMA [place] the [place] and given 2mg Narcan, aaox4, endorses that he smoke fentanly, pt is hypothermic and bear-hugger placed to warm pt, is aware
--- NOTE | 2025-09-04 01:26 | ECG_ITS ---
Test Reason : OVERDOSE Blood Pressure : */* mmHG Vent. Rate : 60 BPM Atrial Rate : 60 BPM P-R Int : 154 ms QRS Dur : 84 ms QT Int : 456 ms P-R-T Axes : 53 65 38 degrees QTcB Int : 456 ms Normal sinus rhythm Normal ECG When compared with ECG of 13-Mar-2025 19:34, No significant change was found Referred By: Emma Redding Electronically Signed By: NUSRAT SOLIMAN
--- OUTSIDE RECORDS SUMMARY | 2025-09-04 02:35 | XMS_ITS | Clinical Summary ---
Author Organization [employer] [facility] [employer] [facility] Address [address] [place], [place] [id number] Phone Care Team Providers Care Associate Professor Of Law Name Role Phone [facility] Unavailable Social History Tobacco Use Types Packs/Day Years Used Date Smoking Tobacco: Never Assessed Sex and Gender Information Value Date Recorded Sex Assigned at Not on file Legal Sex Male 9:38 PM EDT Gender Identity Not on file Sexual Orientation Not on file Last Filed Vital Signs Vital Sign Reading Time Taken Comments Blood Pressure - - Pulse - - Temperature - - Respiratory Rate - - Oxygen Saturation - - Inhaled Oxygen Concentration - - Weight 62.5 kg (137 lb 12.6 oz) 012 12:59 PM EST Height 177.5 cm (5' 9.88 ) 08/12/2012 1 2:59 PM EST Body Mass Index 19.84 08/12/2012 12:59 PM EST Plan of Treatment Not on file Care Teams Associate Professor Of Law Relationship Specialty Start Date End Date [facility] [address] [place] [address] PCP - Insurance PCP 07/05/12
[2025-09-04 03:10] VITALS: BP 111/50; PULSE 60; RESP 14; TEMP 35.2; O2SAT 95
[2025-09-04 05:39] VITALS: BP 119/53; PULSE 63; RESP 17; TEMP 36.9; O2SAT 97
[2025-09-04 06:47] VITALS: BP 109/55; PULSE 68; RESP 16; O2SAT 99
[2025-09-04] MEDS: Naloxone HCl Nasal TAKE HOME 4 MG SPRAY 8 MG NOSTRILALT (06:49)
[2025-09-04 06:51] VITALS: BP 109/55; PULSE 68; RESP 16; TEMP 36.7; O2SAT 99
== END 2025-09-04 07:11 | disposition home or self-care (01) ==
PROVIDERS: Emergency Provider Emergency Medicine
DX: T40.411A Poisoning by fentanyl or fentanyl analogs, accidental (unintentional), initial encounter (principal); Y92.9 Unspecified place or not applicable; T68.XXXA Hypothermia, initial encounter; X31.XXXA Exposure to excessive natural cold, initial encounter; F20.9 Schizophrenia, unspecified; Z79.899 Other long term (current) drug therapy
CPT/HCPCS: 93005; 99283; 99285

== ENCOUNTER → 2025-09-04 01:26 | Outpatient (BNV) | payer MEDICARE, MEDICAID, SELFPAY | PROVIDERS: Emergency Provider Emergency Medicine; Visit Provider Internal Medicine | DX: T50.901A Poisoning by unspecified drugs, medicaments and biological substances, accidental (unintentional), initial encounter (principal) | CPT/HCPCS: 93010 ==